=== PATIENT | male | born 1970 | race Caucasian/White ===

== ENCOUNTER 2017-12-01 08:54 | Outpatient (CLI) | payer OTHER, SELFPAY ==
[2017-12-01 11:03] LABS: Anion Gap 7.9 mmol/L (3-11); BUN 22 mg/dL (7-18); CO2 31.1 mmol/L (21.0-32.0); CREATININE 1.11 mg/dL (0.70-1.30); Calcium 8.9 mg/dL (8.5-10.1); Chloride 102 mmol/L (98-107); Cholesterol 134 mg/dL (50-200); Glucose 83 mg/dL (70-100); HDL Cholesterol 36 mg/dL (40-60); LDL CHOLESTEROL 77 mg/dL (<100); Potassium 3.9 mmol/L (3.5-5.1); Sodium 141 mmol/L (136-145); Triglyceride 152 mg/dL (30-150)
[2017-12-03 07:42] LABS: Hemoglobin A1C 8.3 % (4.5-6.2)
[2017-12-03 08:11] LABS: COMMENT (LAB VIEW ONLY) 124.14 mg/dL; Microalb ug/mg Crea 108.6 ug/mg Cr
== END 2017-12-01 09:14 ==
PROVIDERS: PCP Nurse Practitioner Family; Visit Provider Nurse Practitioner Family
DX: E11.9 Type 2 diabetes mellitus without complications (principal); E78.5 Hyperlipidemia, unspecified
CPT/HCPCS: 36415; 80048; 80061; 83721; 82043; 82570; 83036

== ENCOUNTER 2018-12-07 08:59 | Outpatient (CLI) | payer OTHER, SELFPAY ==
[2018-12-07 10:23] LABS: BUN 20 mg/dL (7-18); CREATININE 1.24 mg/dL (0.70-1.30); Calcium 9.5 mg/dL (8.5-10.1); Calculated LDL 73 mg/dL; Chloride 103 mmol/L (98-107); Cholesterol 139 mg/dL (50-200); Glucose 68 mg/dL (70-100); HDL Cholesterol 37 mg/dL (40-60); Potassium 4.3 mmol/L (3.5-5.1); Sodium 144 mmol/L (136-145); Triglyceride 146 mg/dL (30-150)
[2018-12-07 10:41] LABS: Hemoglobin A1C 7.4 % (4.5-6.2)
[2018-12-09 07:26] LABS: COMMENT (LAB VIEW ONLY) 124.63 mg/dL
== END 2018-12-07 09:19 ==
PROVIDERS: PCP Nurse Practitioner Family; Visit Provider Nurse Practitioner Family
DX: I10 Essential (primary) hypertension (principal); E78.5 Hyperlipidemia, unspecified; E11.9 Type 2 diabetes mellitus without complications; R73.01 Impaired fasting glucose
CPT/HCPCS: 36415; 80048; 80061; 82043; 82570; 83036

== ENCOUNTER 2019-03-10 13:03 | Outpatient (REF) | payer OTHER, SELFPAY ==
[2019-03-10 14:52] LABS: Abs Immature Grans 0.06 k/cumm (0.0-0.09); Absolute Basophil Count 0.05 k/cumm (0.0-0.2); Absolute Eosinophil Count 0.24 k/cumm (0.0-0.7); Absolute Lymphocyte Count 1.82 k/cumm (1.2-3.4); Absolute Monocyte Count 0.67 k/cumm (0.11-0.7); Absolute Neutrophil Count 5.55 k/cumm (1.2-6.7); Basophils % 0.6; Eosinophils % 2.9; HCT 42.3 % (40.0-50.0); HGB 13.7 g/dL (13.5-17.5); Immature Grans % 0.7 %; Lymphocytes % 21.7; Mean Corp. HGB Concentration 32.4 g/dL (32.0-36.0); Mean Corpuscular Hemoglobin 29.9 pg (27.0-33.0); Mean Corpuscular Volume 92.4 fL (80-95); Mean Platelet Volume 8.6 fL (8.0-11.0); Neutrophils % 66.1; Platelet Count 504 x1000/uL (130-400); RBC 4.58 m/cumm (4.50-6.00); RBC Distribution Width 13.9 % (11.8-14.1); White Blood Cell Count 8.39 k/cumm (4.4-10.8)
[2019-03-10 15:00] LABS: ALT 70 U/L (16-63); AST 28 U/L (15-37); Albumin 3.8 g/dL (3.4-5.0); Alkaline Phosphatase 82 U/L (46-116); Anion Gap 11.7 mmol/L (3-11); BUN 22 mg/dL (7-18); Bilirubin, Total 0.2 mg/dL (0.2-1.0); CO2 27.3 mmol/L (21.0-32.0); CREATININE 1.26 mg/dL (0.70-1.30); Calcium 9.7 mg/dL (8.5-10.1); Chloride 102 mmol/L (98-107); Glucose 123 mg/dL (74-106); Potassium 4.6 mmol/L (3.5-5.1); Sodium 141 mmol/L (136-145); Total Protein 7.4 g/dL (6.4-8.2)
== END 2019-03-10 13:23 ==
LOC: LBN 13:03
PROVIDERS: PCP Nurse Practitioner Family; Visit Provider Internal Medicine Infectious Disease
DX: T84.7XXD Infection and inflammatory reaction due to other internal orthopedic prosthetic devices, implants and grafts, subsequent encounter (principal); E11.9 Type 2 diabetes mellitus without complications
CPT/HCPCS: 80053; 85025; 86140

== ENCOUNTER 2019-03-17 12:49 | Outpatient (REF) | payer OTHER, SELFPAY ==
[2019-03-17 13:22] LABS: Abs Immature Grans 0.03 k/cumm (0.0-0.09); Absolute Basophil Count 0.04 k/cumm (0.0-0.2); Absolute Eosinophil Count 0.14 k/cumm (0.0-0.7); Absolute Monocyte Count 0.75 k/cumm (0.11-0.7); Absolute Neutrophil Count 7.07 k/cumm (1.2-6.7); Basophils % 0.4; Eosinophils % 1.4; HCT 41.8 % (40.0-50.0); HGB 13.6 g/dL (13.5-17.5); Immature Grans % 0.3 %; Lymphocytes % 17.5; Mean Corp. HGB Concentration 32.5 g/dL (32.0-36.0); Mean Corpuscular Hemoglobin 29.9 pg (27.0-33.0); Mean Corpuscular Volume 91.9 fL (80-95); Mean Platelet Volume 8.6 fL (8.0-11.0); Monocytes % 7.7; Neutrophils % 72.7; Platelet Count 474 x1000/uL (130-400); RBC 4.55 m/cumm (4.50-6.00); RBC Distribution Width 14.2 % (11.8-14.1); White Blood Cell Count 9.73 k/cumm (4.4-10.8)
[2019-03-17 13:59] LABS: ALT 38 U/L (16-63); AST 18 U/L (15-37); Alkaline Phosphatase 65 U/L (46-116); Anion Gap 11.6 mmol/L (3-11); BUN 28 mg/dL (7-18); Bilirubin, Total 0.2 mg/dL (0.2-1.0); C-Reactive Protein 0.39 mg/dL (0.0-0.3); CO2 28.4 mmol/L (21.0-32.0); CREATININE 1.15 mg/dL (0.70-1.30); Calcium 9.5 mg/dL (8.5-10.1); Chloride 102 mmol/L (98-107); Glucose 91 mg/dL (74-106); Potassium 4.5 mmol/L (3.5-5.1); Sodium 142 mmol/L (136-145); Total Protein 7.3 g/dL (6.4-8.2)
== END 2019-03-17 13:09 ==
LOC: LBN 12:49
PROVIDERS: PCP Nurse Practitioner Family; Visit Provider Internal Medicine Infectious Disease
DX: T84.7XXD Infection and inflammatory reaction due to other internal orthopedic prosthetic devices, implants and grafts, subsequent encounter (principal); I10 Essential (primary) hypertension; E11.9 Type 2 diabetes mellitus without complications
CPT/HCPCS: 80053; 85025; 86140

== ENCOUNTER 2019-03-31 12:00 | Outpatient (REF) | payer OTHER, SELFPAY ==
[2019-03-31 12:57] LABS: Abs Immature Grans 0.02 k/cumm (0.0-0.09); Absolute Basophil Count 0.04 k/cumm (0.0-0.2); Absolute Eosinophil Count 0.17 k/cumm (0.0-0.7); Absolute Lymphocyte Count 1.33 k/cumm (1.2-3.4); Absolute Monocyte Count 0.73 k/cumm (0.11-0.7); Absolute Neutrophil Count 4.77 k/cumm (1.2-6.7); Basophils % 0.6; Eosinophils % 2.4; HCT 41.8 % (40.0-50.0); HGB 13.6 g/dL (13.5-17.5); Immature Grans % 0.3 %; Lymphocytes % 18.8; Mean Corp. HGB Concentration 32.5 g/dL (32.0-36.0); Mean Corpuscular Volume 92.1 fL (80-95); Mean Platelet Volume 8.7 fL (8.0-11.0); Monocytes % 10.3; Neutrophils % 67.6; Platelet Count 338 x1000/uL (130-400); RBC 4.54 m/cumm (4.50-6.00); RBC Distribution Width 14.4 % (11.8-14.1); White Blood Cell Count 7.06 k/cumm (4.4-10.8)
[2019-03-31 13:08] LABS: ALT 25 U/L (16-63); AST 15 U/L (15-37); Alkaline Phosphatase 52 U/L (46-116); Anion Gap 12.3 mmol/L (3-11); BUN 24 mg/dL (7-18); Bilirubin, Total 0.3 mg/dL (0.2-1.0); C-Reactive Protein 0.31 mg/dL (0.0-0.3); CO2 26.7 mmol/L (21.0-32.0); CREATININE 1.29 mg/dL (0.70-1.30); Calcium 8.9 mg/dL (8.5-10.1); Chloride 103 mmol/L (98-107); Estimated GFR 58.72 (mL/min/1.73m2); Glucose 128 mg/dL (74-106); Potassium 4.1 mmol/L (3.5-5.1); Sodium 142 mmol/L (136-145); Total Protein 7.1 g/dL (6.4-8.2)
== END 2019-03-31 12:20 ==
LOC: LBN 12:00
PROVIDERS: PCP Nurse Practitioner Family; Visit Provider Internal Medicine Infectious Disease
DX: T84.7XXD Infection and inflammatory reaction due to other internal orthopedic prosthetic devices, implants and grafts, subsequent encounter (principal); I10 Essential (primary) hypertension
CPT/HCPCS: 80053; 85025; 86140

== ENCOUNTER 2019-06-17 18:06 | Outpatient (REF) | payer OTHER, SELFPAY ==
[2019-06-17 19:26] LABS: BUN 25 mg/dL (7-18); CREATININE 1.28 mg/dL (0.70-1.30); Estimated GFR 59.25 (mL/min/1.73m2)
== END 2019-06-17 18:26 ==
LOC: LBN 18:06
PROVIDERS: PCP Nurse Practitioner Family; Visit Provider Internal Medicine Infectious Disease
DX: T84.7XXD Infection and inflammatory reaction due to other internal orthopedic prosthetic devices, implants and grafts, subsequent encounter (principal); Z79.2 Long term (current) use of antibiotics; S82.871D Displaced pilon fracture of right tibia, subsequent encounter for closed fracture with routine healing
CPT/HCPCS: 84520; 80202; 82565

== ENCOUNTER 2019-06-23 09:19 | Outpatient (REF) | payer OTHER, SELFPAY ==
[2019-06-23 09:34] LABS: Abs Immature Grans 0.02 k/cumm (0.0-0.09); Absolute Basophil Count 0.06 k/cumm (0.0-0.2); Absolute Eosinophil Count 0.17 k/cumm (0.0-0.7); Absolute Lymphocyte Count 1.36 k/cumm (1.2-3.4); Absolute Monocyte Count 0.53 k/cumm (0.11-0.7); Absolute Neutrophil Count 4.91 k/cumm (1.2-6.7); Basophils % 0.9; Eosinophils % 2.4; HGB 13.9 g/dL (13.5-17.5); Immature Grans % 0.3 %; Lymphocytes % 19.3; Mean Corp. HGB Concentration 33.1 g/dL (32.0-36.0); Mean Corpuscular Hemoglobin 30.2 pg (27.0-33.0); Mean Corpuscular Volume 91.3 fL (80-95); Mean Platelet Volume 8.7 fL (8.0-11.0); Monocytes % 7.5; Neutrophils % 69.6; Platelet Count 411 x1000/uL (130-400); RBC Distribution Width 13.6 % (11.8-14.1); White Blood Cell Count 7.05 k/cumm (4.4-10.8)
[2019-06-23 09:45] LABS: ALT 47 U/L (16-63); AST 20 U/L (15-37); Albumin 4.3 g/dL (3.4-5.0); Alkaline Phosphatase 81 U/L (46-116); Anion Gap 9.3 mmol/L (3-11); BUN 23 mg/dL (7-18); Bilirubin, Total 0.4 mg/dL (0.2-1.0); C-Reactive Protein 0.36 mg/dL (0.0-0.3); CO2 28.7 mmol/L (21.0-32.0); CREATININE 1.26 mg/dL (0.70-1.30); Calcium 9.5 mg/dL (8.5-10.1); Chloride 102 mmol/L (98-107); Glucose 164 mg/dL (74-106); Sodium 140 mmol/L (136-145); Total Protein 7.5 g/dL (6.4-8.2)
[2019-06-23 09:56] LABS: Vancomycin, Trough 14.8 ug/mL (10.0-20.0)
== END 2019-06-23 09:39 ==
LOC: LBN 09:19
PROVIDERS: PCP Nurse Practitioner Family; Visit Provider Internal Medicine Infectious Disease
DX: L08.9 Local infection of the skin and subcutaneous tissue, unspecified (principal); Z79.2 Long term (current) use of antibiotics
CPT/HCPCS: 80053; 80202; 85025; 86140

== ENCOUNTER 2019-06-30 08:54 | Outpatient (REF) | payer OTHER, SELFPAY ==
[2019-06-30 09:33] LABS: Abs Immature Grans 0.01 k/cumm (0.0-0.09); Absolute Basophil Count 0.06 k/cumm (0.0-0.2); Absolute Eosinophil Count 0.21 k/cumm (0.0-0.7); Absolute Monocyte Count 0.53 k/cumm (0.11-0.7); Absolute Neutrophil Count 4.45 k/cumm (1.2-6.7); Basophils % 0.9; Eosinophils % 3.2; HCT 41.9 % (40.0-50.0); HGB 14.1 g/dL (13.5-17.5); Immature Grans % 0.2 %; Mean Corp. HGB Concentration 33.7 g/dL (32.0-36.0); Mean Corpuscular Hemoglobin 30.5 pg (27.0-33.0); Mean Corpuscular Volume 90.5 fL (80-95); Mean Platelet Volume 8.6 fL (8.0-11.0); Neutrophils % 66.7; Platelet Count 326 x1000/uL (130-400); RBC 4.63 m/cumm (4.50-6.00); RBC Distribution Width 13.5 % (11.8-14.1); White Blood Cell Count 6.66 k/cumm (4.4-10.8)
[2019-06-30 09:40] LABS: ALT 77 U/L (16-63); AST 28 U/L (15-37); Albumin 4.2 g/dL (3.4-5.0); Alkaline Phosphatase 77 U/L (46-116); Anion Gap 10.5 mmol/L (3-11); BUN 23 mg/dL (7-18); Bilirubin, Total 0.6 mg/dL (0.2-1.0); CO2 28.5 mmol/L (21.0-32.0); CREATININE 1.36 mg/dL (0.70-1.30); Calcium 9.1 mg/dL (8.5-10.1); Chloride 102 mmol/L (98-107); Estimated GFR 55.25 (mL/min/1.73m2); Glucose 138 mg/dL (74-106); Sodium 141 mmol/L (136-145); Total Protein 7.3 g/dL (6.4-8.2); Vancomycin, Trough 16.2 ug/mL (10.0-20.0)
[2019-06-30 09:48] LABS: C-Reactive Protein 0.17 mg/dL (0.0-0.3)
== END 2019-06-30 09:14 ==
LOC: LBN 08:54
PROVIDERS: PCP Nurse Practitioner Family; Visit Provider Internal Medicine Infectious Disease
DX: T84.7XXD Infection and inflammatory reaction due to other internal orthopedic prosthetic devices, implants and grafts, subsequent encounter (principal); Z51.81 Encounter for therapeutic drug level monitoring; Z79.2 Long term (current) use of antibiotics
CPT/HCPCS: 80053; 80202; 85025; 86140

== ENCOUNTER 2019-07-07 09:35 | Outpatient (REF) | payer OTHER, SELFPAY ==
[2019-07-07 10:00] LABS: Abs Immature Grans 0.01 k/cumm (0.0-0.09); Absolute Basophil Count 0.05 k/cumm (0.0-0.2); Absolute Eosinophil Count 0.16 k/cumm (0.0-0.7); Absolute Lymphocyte Count 0.96 k/cumm (1.2-3.4); Absolute Monocyte Count 0.53 k/cumm (0.11-0.7); Absolute Neutrophil Count 3.07 k/cumm (1.2-6.7); Eosinophils % 3.3; HCT 41.2 % (40.0-50.0); Immature Grans % 0.2 %; Lymphocytes % 20.1; Mean Corpuscular Hemoglobin 30.4 pg (27.0-33.0); Mean Corpuscular Volume 89.6 fL (80-95); Mean Platelet Volume 8.6 fL (8.0-11.0); Monocytes % 11.1; Neutrophils % 64.3; Platelet Count 306 x1000/uL (130-400); RBC Distribution Width 13.5 % (11.8-14.1); White Blood Cell Count 4.78 k/cumm (4.4-10.8)
[2019-07-07 10:10] LABS: ALT 71 U/L (16-63); AST 25 U/L (15-37); Albumin 4.2 g/dL (3.4-5.0); Alkaline Phosphatase 68 U/L (46-116); Anion Gap 10.1 mmol/L (3-11); BUN 22 mg/dL (7-18); Bilirubin, Total 0.6 mg/dL (0.2-1.0); CO2 27.9 mmol/L (21.0-32.0); CREATININE 1.31 mg/dL (0.70-1.30); Calcium 9.2 mg/dL (8.5-10.1); Chloride 102 mmol/L (98-107); Estimated GFR 57.69 (mL/min/1.73m2); Glucose 194 mg/dL (74-106); Sodium 140 mmol/L (136-145); Total Protein 7.3 g/dL (6.4-8.2)
[2019-07-07 16:03] LABS: Vancomycin, Trough 15.7 ug/mL (10.0-20.0)
[2019-07-07 16:11] LABS: C-Reactive Protein 0.18 mg/dL (0.0-0.3)
== END 2019-07-07 09:55 ==
LOC: LBN 09:35
PROVIDERS: PCP Nurse Practitioner Family; Visit Provider Internal Medicine Infectious Disease
DX: T84.7XXD Infection and inflammatory reaction due to other internal orthopedic prosthetic devices, implants and grafts, subsequent encounter (principal); Z79.2 Long term (current) use of antibiotics; Z51.81 Encounter for therapeutic drug level monitoring
CPT/HCPCS: 80053; 80202; 85025; 86140

== ENCOUNTER 2019-07-14 10:14 | Outpatient (RCR) | payer OTHER, SELFPAY ==
--- NOTE | 2019-07-14 11:45 | DI.RAD_ITS ---
EXAM: XR PORTABLE CHEST AP CLINICAL HISTORY: Picc line placement TECHNIQUE: 2D digital imaging was performed. COMPARISON: No exams were available for comparison FINDINGS: MEDIASTINUM: Normal. HEART: Normal. PULMONARY VASCULATURE: Normal. LUNGS: Clear. PLEURAL SPACE: No pleural effusion or pneumothorax. BONE:Normal. OTHER FINDINGS:There is a right PICC line in place. The tip is in good position at the junction of t he superior vena cava and right atrium. IMPRESSION: The tip of the right PICC line is in good position at the junction of the superior vena cava and righ t atrium. No acute pulmonary process. DATA REPOSITORY: RADIATION DOSE DELIVERED:
[2019-07-14] MEDS: Water,Injection,Sterile 10 ML VIAL IV (12:31)
[2019-07-14] MEDS: Alteplase 2 MG VIAL IJ (12:31)
[2019-07-14] MEDS: Normal Saline Flush 10 ML SYR IVP (12:31)
== END 2019-07-27 23:59 | disposition home or self-care (01) ==
LOC: INF 10:14
PROVIDERS: PCP Nurse Practitioner Family; Visit Provider Nurse Practitioner Family
DX: M86.9 Osteomyelitis, unspecified (principal); Z79.2 Long term (current) use of antibiotics; Z45.2 Encounter for adjustment and management of vascular access device
CPT/HCPCS: 71045; J2997

== ENCOUNTER 2019-07-14 10:18 | Outpatient (REF) | payer OTHER, SELFPAY ==
[2019-07-14 10:43] LABS: ALT 82 U/L (16-63); AST 27 U/L (15-37); Albumin 4.5 g/dL (3.4-5.0); Alkaline Phosphatase 76 U/L (46-116); Anion Gap 8.7 mmol/L (3-11); BUN 24 mg/dL (7-18); Bilirubin, Total 0.6 mg/dL (0.2-1.0); CO2 31.3 mmol/L (21.0-32.0); CREATININE 1.39 mg/dL (0.70-1.30); Calcium 9.4 mg/dL (8.5-10.1); Chloride 100 mmol/L (98-107); Estimated GFR 53.87 (mL/min/1.73m2); Glucose 237 mg/dL (74-106); Sodium 140 mmol/L (136-145); Total Protein 7.5 g/dL (6.4-8.2); Vancomycin, Trough 15.2 ug/mL (10.0-20.0)
[2019-07-14 10:48] LABS: Absolute Basophil Count 0.04 k/cumm (0.0-0.2); Absolute Eosinophil Count 0.19 k/cumm (0.0-0.7); Absolute Lymphocyte Count 1.14 k/cumm (1.2-3.4); Absolute Monocyte Count 0.73 k/cumm (0.11-0.7); Absolute Neutrophil Count 3.02 k/cumm (1.2-6.7); Basophils % 0.8; Eosinophils % 3.7; HCT 42.7 % (40.0-50.0); HGB 14.3 g/dL (13.5-17.5); Lymphocytes % 22.3; Mean Corp. HGB Concentration 33.5 g/dL (32.0-36.0); Mean Corpuscular Hemoglobin 30.3 pg (27.0-33.0); Mean Corpuscular Volume 90.5 fL (80-95); Mean Platelet Volume 8.6 fL (8.0-11.0); Monocytes % 14.3; Neutrophils % 58.9; Platelet Count 320 x1000/uL (130-400); RBC 4.72 m/cumm (4.50-6.00); RBC Distribution Width 13.6 % (11.8-14.1); White Blood Cell Count 5.12 k/cumm (4.4-10.8)
[2019-07-14 10:52] LABS: C-Reactive Protein 0.37 mg/dL (0.0-0.3)
== END 2019-07-14 10:38 ==
LOC: LBN 10:18
PROVIDERS: PCP Nurse Practitioner Family; Visit Provider Internal Medicine Infectious Disease
DX: T84.7XXD Infection and inflammatory reaction due to other internal orthopedic prosthetic devices, implants and grafts, subsequent encounter (principal); Z51.81 Encounter for therapeutic drug level monitoring; Z79.2 Long term (current) use of antibiotics; L08.9 Local infection of the skin and subcutaneous tissue, unspecified
CPT/HCPCS: 80053; 80202; 85025; 86140

== ENCOUNTER 2019-07-21 09:32 | Outpatient (CLI) | payer OTHER, SELFPAY ==
[2019-07-21 09:48] LABS: Abs Immature Grans 0.01 k/cumm (0.0-0.09); Absolute Basophil Count 0.04 k/cumm (0.0-0.2); Absolute Eosinophil Count 0.18 k/cumm (0.0-0.7); Absolute Lymphocyte Count 1.19 k/cumm (1.2-3.4); Absolute Monocyte Count 0.76 k/cumm (0.11-0.7); Absolute Neutrophil Count 3.95 k/cumm (1.2-6.7); Basophils % 0.7; Eosinophils % 2.9; HCT 40.1 % (40.0-50.0); HGB 13.8 g/dL (13.5-17.5); Immature Grans % 0.2 %; Lymphocytes % 19.4; Mean Corp. HGB Concentration 34.4 g/dL (32.0-36.0); Mean Corpuscular Hemoglobin 30.8 pg (27.0-33.0); Mean Corpuscular Volume 89.5 fL (80-95); Mean Platelet Volume 8.5 fL (8.0-11.0); Monocytes % 12.4; Neutrophils % 64.4; Platelet Count 320 x1000/uL (130-400); RBC 4.48 m/cumm (4.50-6.00); RBC Distribution Width 13.5 % (11.8-14.1); White Blood Cell Count 6.13 k/cumm (4.4-10.8)
[2019-07-21 10:02] LABS: ALT 71 U/L (16-63); AST 25 U/L (15-37); Albumin 4.3 g/dL (3.4-5.0); Alkaline Phosphatase 72 U/L (46-116); Anion Gap 8.7 mmol/L (3-11); BUN 31 mg/dL (7-18); Bilirubin, Total 0.7 mg/dL (0.2-1.0); CO2 28.3 mmol/L (21.0-32.0); CREATININE 1.44 mg/dL (0.70-1.30); Calcium 9.3 mg/dL (8.5-10.1); Chloride 102 mmol/L (98-107); Estimated GFR 51.72 (mL/min/1.73m2); Glucose 126 mg/dL (74-106); Sodium 139 mmol/L (136-145); Total Protein 7.2 g/dL (6.4-8.2)
[2019-07-21 10:14] LABS: Vancomycin, Trough 17.5 ug/mL (10.0-20.0)
[2019-07-21 10:24] LABS: C-Reactive Protein 0.69 mg/dL (0.0-0.3)
== END 2019-07-21 09:52 ==
PROVIDERS: PCP Nurse Practitioner Family; Visit Provider Internal Medicine Infectious Disease
DX: T84.7XXD Infection and inflammatory reaction due to other internal orthopedic prosthetic devices, implants and grafts, subsequent encounter (principal); S82.871D Displaced pilon fracture of right tibia, subsequent encounter for closed fracture with routine healing; Z79.2 Long term (current) use of antibiotics
CPT/HCPCS: 80053; 80202; 85025; 86140

== ENCOUNTER 2020-08-16 14:49 | Outpatient (REF) | payer BC, SELFPAY ==
[2020-08-16 14:10] LABS: Abs Immature Grans 0.06 10^3/uL (0.0-0.06); Absolute Basophil Count 0.06 10^3/uL (0.0-0.2); Absolute Eosinophil Count 0.25 10^3/uL (0.0-0.7); Absolute Lymphocyte Count 1.55 10^3/uL (1.2-3.4); Absolute Monocyte Count 0.79 10^3/uL (0.1-0.8); Absolute Neutrophil Count 6.22 10^3/uL (1.2-6.7); Basophils % 0.7; Eosinophils % 2.8; HCT 38.2 % (40.0-50.0); HGB 12.4 g/dL (13.5-17.5); Immature Grans % 0.7; Lymphocytes % 17.4; MCH 29.5 pg (27.0-33.0); MCHC 32.5 % (32.0-36.0); MCV 90.7 fL (80-95); MPV 8.2 fL (8.0-11.0); Monocytes % 8.8; Neutrophils % 69.6; Nucleated RBC 0 %; Platelet Count 454 10^3/uL (130-400); RBC 4.21 10^6/uL (4.36-5.78); RDW 13.1 % (11.8-14.1); RDW-SD 43.8 fL; WBC 8.93 10^3/uL (4.4-10.8)
[2020-08-16 14:23] LABS: ALT 104 U/L (16-63); AST 34 U/L (15-37); Albumin 3.4 g/dL (3.4-5.0); Alkaline Phosphatase 101 U/L (46-116); Anion Gap 8.7 mmol/L (3-11); BUN 25 mg/dL (7-18); Bilirubin, Total 0.3 mg/dL (0.2-1.0); C-Reactive Protein 1.39 mg/dL (0.0-0.3); CO2 27.3 mmol/L (21.0-32.0); CREATININE 1.3 mg/dL (0.70-1.30); Calcium 9.9 mg/dL (8.5-10.1); Chloride 104 mmol/L (98-107); Estimated GFR 57.97 (mL/min/1.73m2); Glucose 189 mg/dL (74-106); Potassium 4.4 mmol/L (3.5-5.1); Sodium 140 mmol/L (136-145); Total Protein 7.5 g/dL (6.4-8.2)
[2020-08-16 14:40] LABS: Vancomycin, Trough 7.3 ug/mL (10.0-20.0)
== END 2020-08-16 14:50 | disposition home or self-care (01) ==
LOC: NCHCN 14:49
PROVIDERS: PCP Nurse Practitioner Family; Visit Provider Nurse Practitioner
DX: T84.7XXD Infection and inflammatory reaction due to other internal orthopedic prosthetic devices, implants and grafts, subsequent encounter (principal); Z79.2 Long term (current) use of antibiotics
CPT/HCPCS: 80053; 80202; 85025; 86140

== ENCOUNTER 2020-08-19 18:24 | Outpatient (REF) | payer BC, SELFPAY ==
[2020-08-19 10:58] LABS: BUN 25 mg/dL (7-18); CREATININE 1.4 mg/dL (0.70-1.30); Estimated GFR 53.22 (mL/min/1.73m2)
[2020-08-19 11:12] LABS: Vancomycin, Trough 14.1 ug/mL (10.0-20.0)
== END 2020-08-19 18:25 | disposition home or self-care (01) ==
LOC: LBN 18:24
PROVIDERS: PCP Nurse Practitioner Family; Visit Provider Internal Medicine Infectious Disease
DX: T84.7XXD Infection and inflammatory reaction due to other internal orthopedic prosthetic devices, implants and grafts, subsequent encounter (principal); Z79.2 Long term (current) use of antibiotics
CPT/HCPCS: 84520; 80202; 82565

== ENCOUNTER 2020-08-23 09:37 | Outpatient (REF) | payer BC, SELFPAY ==
[2020-08-23 10:46] LABS: ALT 59 U/L (16-63); AST 22 U/L (15-37); Albumin 3.5 g/dL (3.4-5.0); Alkaline Phosphatase 87 U/L (46-116); Anion Gap 10.4 mmol/L (3-11); BUN 25 mg/dL (7-18); Bilirubin, Total 0.4 mg/dL (0.2-1.0); CO2 27.6 mmol/L (21.0-32.0); CREATININE 1.3 mg/dL (0.70-1.30); Calcium 9.4 mg/dL (8.5-10.1); Chloride 104 mmol/L (98-107); Estimated GFR 57.97 (mL/min/1.73m2); Glucose 193 mg/dL (74-106); Potassium 4.4 mmol/L (3.5-5.1); Sodium 142 mmol/L (136-145); Total Protein 7.3 g/dL (6.4-8.2); Vancomycin, Trough 16.1 ug/mL (10.0-20.0)
[2020-08-23 13:59] LABS: C-Reactive Protein 0.56 mg/dL (0.0-0.3)
== END 2020-08-23 09:38 | disposition home or self-care (01) ==
LOC: LBN 09:37
PROVIDERS: PCP Nurse Practitioner Family; Visit Provider Internal Medicine Infectious Disease
DX: T84.7XXD Infection and inflammatory reaction due to other internal orthopedic prosthetic devices, implants and grafts, subsequent encounter (principal); Z79.2 Long term (current) use of antibiotics
CPT/HCPCS: 80053; 80202; 85025; 86140

== ENCOUNTER 2020-08-30 11:47 | Outpatient (REF) | payer BC, SELFPAY ==
[2020-08-30 12:08] LABS: Abs Immature Grans 0.03 10^3/uL (0.0-0.06); Absolute Basophil Count 0.05 10^3/uL (0.0-0.2); Absolute Eosinophil Count 0.24 10^3/uL (0.0-0.7); Absolute Lymphocyte Count 1.13 10^3/uL (1.2-3.4); Absolute Monocyte Count 0.63 10^3/uL (0.1-0.8); Absolute Neutrophil Count 4.97 10^3/uL (1.2-6.7); Basophils % 0.7; Eosinophils % 3.4; HCT 33.8 % (40.0-50.0); HGB 10.8 g/dL (13.5-17.5); Immature Grans % 0.4; MCV 90.6 fL (80-95); MPV 8.5 fL (8.0-11.0); Monocytes % 8.9; Neutrophils % 70.6; Nucleated RBC 0 %; Platelet Count 408 10^3/uL (130-400); RBC 3.73 10^6/uL (4.36-5.78); RDW 13.2 % (11.8-14.1); RDW-SD 43.5 fL; WBC 7.05 10^3/uL (4.4-10.8)
[2020-08-30 12:18] LABS: Albumin 3.3 g/dL (3.4-5.0); Alkaline Phosphatase 86 U/L (46-116); BUN 19 mg/dL (7-18); Bilirubin, Total 0.3 mg/dL (0.2-1.0); CO2 27.1 mmol/L (21.0-32.0); CREATININE 1.4 mg/dL (0.70-1.30); Calcium 9.1 mg/dL (8.5-10.1); Chloride 103 mmol/L (98-107); Estimated GFR 53.22 (mL/min/1.73m2); Glucose 259 mg/dL (74-106); Potassium 4.5 mmol/L (3.5-5.1); Sodium 140 mmol/L (136-145)
[2020-08-30 12:19] LABS: ALT 39 U/L (16-63); AST 18 U/L (15-37); Anion Gap 9.9 mmol/L (3-11); Vancomycin, Trough 14.1 ug/mL (10.0-20.0)
[2020-08-30 12:45] LABS: C-Reactive Protein 0.72 mg/dL (0.0-0.3)
== END 2020-08-30 11:48 | disposition home or self-care (01) ==
LOC: LBN 11:47
PROVIDERS: PCP Nurse Practitioner Family; Visit Provider Internal Medicine Infectious Disease
DX: T84.7XXD Infection and inflammatory reaction due to other internal orthopedic prosthetic devices, implants and grafts, subsequent encounter (principal); B95.7 Other staphylococcus as the cause of diseases classified elsewhere; M86.161 Other acute osteomyelitis, right tibia and fibula; Z79.2 Long term (current) use of antibiotics
CPT/HCPCS: 80053; 80202; 85025; 86140

== ENCOUNTER 2020-09-06 21:05 | Outpatient (REF) | payer BC, SELFPAY ==
[2020-09-06 13:20] LABS: Abs Immature Grans 0.04 10^3/uL (0.0-0.06); Absolute Basophil Count 0.06 10^3/uL (0.0-0.2); Absolute Eosinophil Count 0.16 10^3/uL (0.0-0.7); Absolute Lymphocyte Count 1.15 10^3/uL (1.2-3.4); Absolute Monocyte Count 0.58 10^3/uL (0.1-0.8); Absolute Neutrophil Count 4.61 10^3/uL (1.2-6.7); Basophils % 0.9; Eosinophils % 2.4; HCT 34.9 % (40.0-50.0); HGB 11.2 g/dL (13.5-17.5); Immature Grans % 0.6; Lymphocytes % 17.4; MCH 29.8 pg (27.0-33.0); MCHC 32.1 % (32.0-36.0); MCV 92.8 fL (80-95); MPV 8.6 fL (8.0-11.0); Monocytes % 8.8; Neutrophils % 69.9; Nucleated RBC 0 %; Platelet Count 336 10^3/uL (130-400); RBC 3.76 10^6/uL (4.36-5.78); RDW 13.2 % (11.8-14.1); RDW-SD 44.9 fL
[2020-09-06 13:38] LABS: ALT 39 U/L (16-63); AST 12 U/L (15-37); Albumin 3.7 g/dL (3.4-5.0); Alkaline Phosphatase 85 U/L (46-116); Anion Gap 13.9 mmol/L (3-11); BUN 23 mg/dL (7-18); Bilirubin, Total 0.5 mg/dL (0.2-1.0); CO2 25.1 mmol/L (21.0-32.0); CREATININE 1.3 mg/dL (0.70-1.30); Calcium 9.1 mg/dL (8.5-10.1); Chloride 101 mmol/L (98-107); Estimated GFR 57.97 (mL/min/1.73m2); Glucose 278 mg/dL (74-106); Potassium 4.9 mmol/L (3.5-5.1); Sodium 140 mmol/L (136-145)
[2020-09-06 13:52] LABS: C-Reactive Protein 0.35 mg/dL (0.0-0.3)
== END 2020-09-06 21:06 | disposition home or self-care (01) ==
LOC: LBN 21:05
PROVIDERS: PCP Nurse Practitioner Family; Visit Provider Internal Medicine Infectious Disease
DX: T84.7XXD Infection and inflammatory reaction due to other internal orthopedic prosthetic devices, implants and grafts, subsequent encounter (principal); B95.7 Other staphylococcus as the cause of diseases classified elsewhere; Z79.2 Long term (current) use of antibiotics
CPT/HCPCS: 80053; 80202; 85025; 86140

== ENCOUNTER 2020-09-09 13:31 | Outpatient (REF) | payer BC, SELFPAY ==
[2020-09-09 14:53] LABS: BUN 23 mg/dL (7-18); CREATININE 1.7 mg/dL (0.70-1.30); Estimated GFR 42.54 (mL/min/1.73m2); Vancomycin, Trough 13.6 ug/mL (10.0-20.0)
== END 2020-09-09 13:32 | disposition home or self-care (01) ==
LOC: LBN 13:31
PROVIDERS: PCP Nurse Practitioner Family; Visit Provider Internal Medicine Infectious Disease
DX: Z79.2 Long term (current) use of antibiotics (principal); T84.7XXD Infection and inflammatory reaction due to other internal orthopedic prosthetic devices, implants and grafts, subsequent encounter; B95.7 Other staphylococcus as the cause of diseases classified elsewhere
CPT/HCPCS: 84520; 80202; 82565

== ENCOUNTER 2020-09-13 10:06 | Outpatient (REF) | payer BC, SELFPAY ==
[2020-09-13 12:46] LABS: Abs Immature Grans 0.02 10^3/uL (0.0-0.06); Absolute Basophil Count 0.07 10^3/uL (0.0-0.2); Absolute Lymphocyte Count 1.25 10^3/uL (1.2-3.4); Absolute Monocyte Count 0.71 10^3/uL (0.1-0.8); Absolute Neutrophil Count 5.25 10^3/uL (1.2-6.7); Basophils % 0.9; Eosinophils % 2.7; HCT 38.1 % (40.0-50.0); HGB 12.4 g/dL (13.5-17.5); Immature Grans % 0.3; Lymphocytes % 16.7; MCH 29.9 pg (27.0-33.0); MCHC 32.5 % (32.0-36.0); MCV 91.8 fL (80-95); Monocytes % 9.5; Neutrophils % 69.9; Nucleated RBC 0 %; RBC 4.15 10^6/uL (4.36-5.78); RDW 13.2 % (11.8-14.1); RDW-SD 44.7 fL
[2020-09-13 12:55] LABS: ALT 56 U/L (16-63); AST 22 U/L (15-37); Albumin 4.1 g/dL (3.4-5.0); Alkaline Phosphatase 86 U/L (46-116); Anion Gap 9.4 mmol/L (3-11); BUN 20 mg/dL (7-18); Bilirubin, Total 0.5 mg/dL (0.2-1.0); C-Reactive Protein 0.17 mg/dL (0.0-0.3); CO2 25.6 mmol/L (21.0-32.0); CREATININE 1.3 mg/dL (0.70-1.30); Calcium 9.2 mg/dL (8.5-10.1); Chloride 106 mmol/L (98-107); Estimated GFR 57.97 (mL/min/1.73m2); Glucose 175 mg/dL (74-106); Potassium 4.6 mmol/L (3.5-5.1); Sodium 141 mmol/L (136-145); Total Protein 7.2 g/dL (6.4-8.2)
[2020-09-13 13:13] LABS: Vancomycin, Trough 19.4 ug/mL (10.0-20.0)
== END 2020-09-13 10:07 | disposition home or self-care (01) ==
LOC: LBN 10:06
PROVIDERS: PCP Internal Medicine Infectious Disease; Visit Provider Internal Medicine Infectious Disease
DX: Z79.2 Long term (current) use of antibiotics (principal); M86.161 Other acute osteomyelitis, right tibia and fibula; T84.7XXD Infection and inflammatory reaction due to other internal orthopedic prosthetic devices, implants and grafts, subsequent encounter; B95.7 Other staphylococcus as the cause of diseases classified elsewhere
CPT/HCPCS: 80053; 80202; 85025; 86140

== ENCOUNTER 2020-09-15 11:23 | Outpatient (REF) | payer BC, SELFPAY ==
[2020-09-15 16:08] LABS: BUN 20 mg/dL (7-18); CREATININE 1.3 mg/dL (0.70-1.30); Estimated GFR 57.97 (mL/min/1.73m2)
== END 2020-09-15 11:24 | disposition home or self-care (01) ==
LOC: LBN 11:23
PROVIDERS: PCP Nurse Practitioner Family; Visit Provider Nurse Practitioner Family
DX: B95.7 Other staphylococcus as the cause of diseases classified elsewhere (principal); M86.161 Other acute osteomyelitis, right tibia and fibula
CPT/HCPCS: 84520; 82565

== ENCOUNTER 2020-09-16 10:19 | Outpatient (REF) | payer BC, SELFPAY ==
[2020-09-16 14:08] LABS: Vancomycin, Trough 11.4 ug/mL (10.0-20.0)
== END 2020-09-16 10:20 | disposition home or self-care (01) ==
LOC: LBN 10:19
PROVIDERS: PCP Nurse Practitioner Family; Visit Provider Internal Medicine Infectious Disease
DX: M86.161 Other acute osteomyelitis, right tibia and fibula (principal); T84.7XXD Infection and inflammatory reaction due to other internal orthopedic prosthetic devices, implants and grafts, subsequent encounter; B95.7 Other staphylococcus as the cause of diseases classified elsewhere; Z79.2 Long term (current) use of antibiotics
CPT/HCPCS: 80202

== ENCOUNTER 2020-09-30 15:44 | Outpatient (REF) | payer BC, SELFPAY ==
[2020-09-30 20:08] LABS: COMMENT (LAB VIEW ONLY) 110.28 mg/dL; Microalb ug/mg Crea 270.2 ug/mg Cr
== END 2020-09-30 15:45 | disposition home or self-care (01) ==
LOC: LBN 15:44
PROVIDERS: PCP Nurse Practitioner Family; Visit Provider Nurse Practitioner Family
DX: E11.29 Type 2 diabetes mellitus with other diabetic kidney complication (principal); Z79.4 Long term (current) use of insulin
CPT/HCPCS: 82043; 82570

== ENCOUNTER 2020-12-09 11:06 | Outpatient (CLI) | payer BC, SELFPAY ==
--- NOTE | 2020-12-09 11:00 | RT.EKG_ITS ---
APPROVED REPORT Exam: Resting ECG Reason for Exam: assess QT interval Patient Location: O HR:105 bpm ECG Measurements Heart Rate 105 AXIS DE 149 P 52 QRSd 81 QRS 33 QT 326 T 30 QTc 433 Conclusion Sinus tachycardia...rate> 99
== END 2020-12-09 11:07 | disposition home or self-care (01) ==
LOC: DI.KIM 11:07
PROVIDERS: PCP Nurse Practitioner Family; Visit Provider Nurse Practitioner Family
DX: Z51.81 Encounter for therapeutic drug level monitoring (principal)
CPT/HCPCS: 93010

== ENCOUNTER 2020-12-20 00:42 | Outpatient (CLI) | payer BC, SELFPAY ==
--- NOTE | 2020-12-20 13:00 | NS.NUTBLAN_ITS ---
Cm was referred to [facility] for diabetes self management education and weight management. 5'10 266 lbs, BMI 38. DM meds: 25 units novolog at meals, 50 units tresiba BID, 1.5 mg trulicity q week, 1000 mg metformin BID. Taken off Jardiance 2-3 months ago. Blood sugars running in 200s most of time. Check BS twice daily. Reports when on Jardiance, blood sugars in good control. Diet recall indicates reliance on convenience meals and often skips meals. Does not drink sweetened beverages or eat desserts. 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 Has been on disabilty for last 2 years, wants to return to work in February 2021. [place] today focused on how to alter meal plan for better glycemic control. Offered Dexcom 6 continuous glucose monitor with remote monitoring, however, he declined. Encouraged Cm to use carb counting phone latonya to limit carb intake below 100 grams. Doubtful that he will use latonya. Cm verbalized that he just wants to get back on jardiance and not interested in changing how he eats. In view of high use of insulin (175 units qd), Cm has insulin resistance and would benefit from exercise and carb reduction. Encouraged Cm to exercise, lift weights with upper body, be as active as possible. He seemed doubtful that he would do this. At this time, Cm is not ready to make significant changes to his diet/lifestyle to improve glycemic control and reduce risk for further complications related to foot surgeries in last 2 years. Cm is interested, however, to a referral to Massimo Lopes, ambulatory pharmacist for medication management. No follow up planned at this time.
== END 2020-12-20 00:43 | disposition home or self-care (01) ==
LOC: DS 00:44
PROVIDERS: PCP Nurse Practitioner Family; Visit Provider Dietitian, Registered
DX: E11.9 Type 2 diabetes mellitus without complications (principal); Z79.4 Long term (current) use of insulin; Z79.84 Long term (current) use of oral hypoglycemic drugs; E66.8 Other obesity; Z68.38 Body mass index [BMI] 38.0-38.9, adult; Z71.3 Dietary counseling and surveillance
CPT/HCPCS: 97802

== ENCOUNTER 2020-12-24 02:30 | Emergency (ER) | payer BC, SELFPAY ==
[2020-12-24 02:35] VITALS: BP 182/95; PULSE 96; RESP 18; TEMP 36.2; O2SAT 100
--- NOTE | 2020-12-24 02:43 | ED.GENADUL_ITS ---
Discharge Plan Disposition Patient Disposition: HOME Condition: Good Discharge Details Clinical Impression: Allergic drug reaction Primary Care Provider: Rebekah Leavitt ED Provider: Milton Sinclair [place] Meds and New Rx's Prescriptions: New prednisone 20 mg tablet 40 mg PO DAILY Qty: 6 RF: 0 Continued Trulicity 1.5 mg/0.5 mL pen injector 1.5 mg subcut QWEEK Qty: 6 RF: 3 sildenafil [Viagra] 100 mg tablet 50 mg PO ONCE PRN (Reason: sexual activity) Qty: 15 RF: 0 atorvastatin [Lipitor] 40 mg tablet 40 mg PO DAILY Qty: 90 RF: 3 Tresiba FlexTouch U-200 200 unit/mL (3 mL) insulin pen 50 unit subcut BID Qty: 45 RF: 3 metformin 1,000 mg tablet 1,000 mg PO BID Qty: 180 RF: 3 acetaminophen 500 mg capsule 1,000 mg PO Q8H PRNRF: 0 aspirin [Aspir-81] 81 mg tablet,delayed release (DR/EC) 81 mg PO BID RF: 0 (DME) pen needle, diabetic 31 gauge x 1/3 needle 1 ea Miscellaneous HS Qty: 500 RF: 3 omeprazole 20 mg capsule,delayed release(DR/EC) 20 mg PO DAILY Qty: 90 RF: 3 insulin lispro [Humalog KwikPen Insulin] 100 unit/mL insulin pen 25 unit SC QAC Qty: 12 RF: 3 Lactobacillus acidoph-pectin 75 million cell -100 mg capsule 1 cap PO DAILY RF: 0 losartan 100 mg tablet 100 mg PO DAILY Qty: 90 RF: 3 Discharge Instructions Instructions: General Allergic Reaction (ED) Additional Instructions: Continue taking diphenhydramine 50 mg every 6 hours for itching. Prednisone burst over the weekend to help alleviate the reaction. Be sure to keep an eye on your blood sugar as prednisone will likely increase it. Return to the ED for difficulty breathing, tongue or throat swelling, fainting, chest pain, other concerns. Medical Decision Making Patient presenting with pruritic whole body rash consistent with drug reaction, presumably to itraconazole. This has been discontinued. Patient is taking diphenhydramine. His previous infection has been deemed clear per the patient. As such we will burst with prednisone due to the progressive nature of his reaction. Patient warned to watch sugars and to expect an elevation while on prednisone. Due to follow-up at [facility] next week for final surgery. Return to the ED if any worsening symptoms especially lip or tongue swelling, difficulty breathing, vomiting, diarrhea. HPI General Mode of arrival: ambulatory . Date/Time Provider Initiated Documentation: 12/24/20 02:41 . Limitations to Documentation: no limitations . Information obtained by: patient, family and RN notes reviewed . HPI Narrative: Patient presents to ED with pruritis and rash for last 24 hours. Was started on itraconazole last week for possible fungal infection. Subsequently developed rash after about a week. No other new medications or potential allergens. ID discontinued med but rash has intensified. Diphenhydramine not really helping. No oral symptoms, no SOB/wheeze, no GI symptoms. Is due to have final surgery on ankle next week as infection is deemed cleared. Related Data Home Medications Medication Instructions Recorded Confirmed acetaminophen 500 mg capsule 1,000 mg PO Q8H PRN cap 06/18/19 12/09/20 aspirin 81 mg tablet,delayed 81 mg PO BID tab 06/18/19 12/09/20 release pen needle, diabetic 31 gauge x #500 ea 01/29/20 12/09/20 1/3 omeprazole 20 mg capsule,delayed 20 mg PO DAILY #90 tab-cap 03/29/20 12/09/20 release insulin lispro 100 unit/mL 25 unit SC QAC #12 syringe 06/10/20 12/09/20 subcutaneous pen dulaglutide 1.5 mg/0.5 mL 1.5 mg SUBCUT QWEEK #6 ml 07/01/20 12/09/20 subcutaneous pen injector sildenafil 100 mg tablet 50 mg PO ONCE PRN #15 tab-cap 07/01/20 12/09/20 Lactobacillus acidophilus 75 1 cap PO DAILY cap 09/21/20 12/09/20 million cell-pectin 100 mg capsule losartan 100 mg tablet 100 mg PO DAILY #90 tab-cap 09/27/20 12/09/20 atorvastatin 40 mg tablet 40 mg PO DAILY #90 tab-cap 12/09/20 12/09/20 insulin degludec 200 unit/mL (3 50 unit SUBCUT BID #45 syrg 12/09/20 12/09/20 mL) subcutaneous pen metformin 1,000 mg tablet 1,000 mg PO BID #180 tab-cap 12/09/20 12/09/20 prednisone 40 mg PO DAILY #6 tab 12/24/20 Previous Rx's Medication Instructions Recorded pen needle, diabetic 31 gauge x #500 ea 01/29/20 1 omeprazole 20 mg capsule,delayed 20 mg PO DAILY #90 tab-cap 03/29/20 release insulin lispro 100 unit/mL 25 unit SC QAC #12 syringe 06/10/20 subcutaneous pen dulaglutide 1.5 mg/0.5 mL 1.5 mg SUBCUT QWEEK #6 ml 07/01/20 subcutaneous pen injector sildenafil 100 mg tablet 50 mg PO ONCE PRN #15 tab-cap 07/01/20 losartan 100 mg tablet 100 mg PO DAILY #90 tab-cap 09/27/20 atorvastatin 40 mg tablet 40 mg PO DAILY #90 tab-cap 12/09/20 insulin degludec 200 unit/mL (3 50 unit SUBCUT BID #45 syrg 12/09/20 mL) subcutaneous pen metformin 1,000 mg tablet 1,000 mg PO BID #180 tab-cap 12/09/20 prednisone 40 mg PO DAILY #6 tab 12/24/20 Allergies Allergy/AdvReac Type Severity Reaction Status Date / Time itraconazole Allergy Intermediate rash Verified 12/24/20 02:59 General Stated Complaint: RashLesion AMANDA: 4 Review of Systems Narrative: As documented in HPI otherwise negative as below. Const: no fever, chills, weakness Resp: no cough, SOB, pleuritic pain CV: no CP, diaphoresis, edema, syncope GI: no abdominal pain, nausea, vomiting, diarrhea Neuro: no headache, numbness, focal weakness, confusion [facility] [place] Medical History Arthritis of ankle, right Closed displaced pilon fracture of right tibia (~12/31/18) 03/12/20 Hardware removal. Erectile dysfunction Essential hypertension HLD (hyperlipidemia) HTN (hypertension) Hyperlipidemia, unspecified 11/2016 labwork: 10-year ASCVD risk = ~5.3% --> continue current high intensity statin therapy In[place]opedic [place] 03/03[place]19 [place] [facility] [place] PICC line, lovenox daily 03/04/19-I&D R tibia 05/05/19-hardware removed 06/13/19-I&D abscess RLE [facility]albuminuria (12/11/16) T2DM (type 2 diabetes mellitus) Surgical History Carpal tunnel release, right Elbow surgery, left H/O ankle fusion 08/06/20 [facility] [place] 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 Scheduled for removal 03/26/20 2 w post op R ankle- removal of hardware. S/P ankle fusion (09/23/20) (Gitajn) right AXB TTC fusion nail removal, bone biopsy new AXB nail placed 11/11/20 exchange of antibiotic nail Family History Mother , Cancer at age 68. Neoplasm Recurrent breast CA? Father , ??? at age 73. Heart disease Myocardial infarction Sister No problems noted. Brother Mental disorder Depression Brother No problems noted. Brother No problems noted. Grandmother Diabetes Maternal Uncle Diabetes Social History Smoking/Tobacco Use Status: Former Tobacco Use tobacco type: cigarettes Quit Date: 02/26/03 Smoking risk assessment performed?: Yes Alcohol Intake: current Alcohol Intake frequency: a few times a month Substance use type: does not use Adopted: No Caregiver/Support person: No Foster care: No Household members: spouse and children Number of Children: 4 number of grandchildren: 6 Communication Needs: Corrective Lenses Education Level: high school Do you need help understanding health information?: Never current occupation: Dance Teacher Pets and animals: No Sexually active: Yes Do you think of yourself as: straight/heterosexual Current gender identity: male What is your relationship status?: How often do you talk on the phone with friends or family?: twice per week Panel score (0-1 are the most socially isolated patients): 1 What type of physical activity do you participate in: none Duration: 45-60 minutes/day Frequency: daily Nan/Pentecostalism: None Special nan needs: No Seatbelt use: always Helmet use: No Drive intox or ride w/intox bulk delivery driver: No Water heater temp set <120 deg: Yes Working smoke detector in home: Yes Fire extinguisher in home: Yes Carbon monox detector in home: Yes Do you feel safe at home: Yes Do you feel safe in your relationship?: Yes Exam Narrative Exam Narrative: Const: WDWN male in NAD. HEENT: NC/AT. Normal facial exam. No lip/tongue/oral swelling. Eyes: Normal conjunctiva and sclera. Neck: Supple. Trachea midline. Lungs: Normal respiratory effort. Lungs are clear. Cor: RRR without murmur/gallop. Neuro: A+O x 3. Normal speech, mentation, gait. Cranial nerves II - XII grossly intact. No gross motor or sensory deficit. Skin: Warm and dry with diffuse maculopapular rash involving entire body. Course Vital Signs Vital signs: Vital Signs Temperature 97.2 F L 12/24/20 02:35 Pulse 96 H 12/24/20 02:35 Respiratory Rate 18 12/24/20 02:35 Blood Pressure 182/95 H 12/24/20 02:35 Pulse Oximetry 100 12/24/20 02:35 Temperature 97.2 F L 12/24/20 02:35 Temperature Source Temporal Artery Scan 12/24/20 02:35 Pulse 96 H 12/24/20 02:35 Respiratory Rate 18 12/24/20 02:35 Blood Pressure 182/95 H 12/24/20 02:35 Pulse Oximetry 100 12/24/20 02:35 Pain Level 0 12/24/20 02:35
[2020-12-24] MEDS: predniSONE 20 MG TAB 60 MG PO (03:02)
== END 2020-12-24 03:25 | disposition home or self-care (01) ==
PROVIDERS: Emergency Provider Emergency Medicine; PCP Nurse Practitioner Family
DX: R21 Rash and other nonspecific skin eruption (principal); L29.8 Other pruritus; T37.8X5A Adverse effect of other specified systemic anti-infectives and antiparasitics, initial encounter
CPT/HCPCS: 99283; J7512

== ENCOUNTER 2020-12-27 02:48 | Outpatient (CLI) | payer BC, SELFPAY ==
[2020-12-27 13:03] LABS: COMMENT (LAB VIEW ONLY) 97.32 mg/dL
[2020-12-27 13:32] LABS: Calculated LDL 32 mg/dL (<100); Cholesterol 126 mg/dL (<200); HDL Cholesterol 42 mg/dL (40-60); Triglyceride 260 mg/dL (<150)
[2020-12-28 10:55] LABS: Hepatitis C Ab w Rflx HCV PCR Negative (Negative)
== END 2020-12-27 02:49 | disposition home or self-care (01) ==
LOC: LBO 02:48
PROVIDERS: PCP Nurse Practitioner Family; Visit Provider Nurse Practitioner Family
DX: Z11.59 Encounter for screening for other viral diseases; E11.9 Type 2 diabetes mellitus without complications; E78.5 Hyperlipidemia, unspecified
CPT/HCPCS: 80061; 86803; 82043; 82570

== ENCOUNTER 2021-01-28 15:37 | Outpatient (REF) | payer BC, SELFPAY ==
[2021-01-28 19:17] LABS: COMMENT (LAB VIEW ONLY) 73.91 mg/dL
[2021-01-28 19:25] LABS: Microalb ug/mg Crea 596.7 ug/mg Cr
== END 2021-01-28 15:38 | disposition home or self-care (01) ==
LOC: LBN 15:37
PROVIDERS: PCP Nurse Practitioner Family; Visit Provider Nurse Practitioner Family
DX: E11.29 Type 2 diabetes mellitus with other diabetic kidney complication; R80.9 Proteinuria, unspecified
CPT/HCPCS: 82043; 82570

== ENCOUNTER 2021-02-08 08:20 | Day surgery (SDC) | payer OTHER, SELFPAY ==
[2021-02-08] VITALS (11 sets, daily range): BP systolic 92–180; BP diastolic 49–106; PULSE 99–118; RESP 16–21; TEMP 36.5–37.1; O2SAT 95–99; BMI 38.5
--- NOTE | 2021-02-08 08:54 | W.ED.GENAD ---
Discharge Plan Disposition Patient Disposition: [facility] DAY SURGERY [facility] Condition: Stable Discharge Details Clinical Impression: Open fracture of right elbow Primary Care Provider: Rebekah Leavitt ED Provider: Chester Guido Home Meds and New Rx's Prescriptions: No Action Trulicity 3 mg/0.5 mL pen injector 3 mg subcut QWEEK Qty: 6 RF: 0 (DME) FreeStyle Shobha 2 Sensor Kit See Rx Instructions .ROUTE .MEDSUPPLY Qty: 6 RF: 3 (DME) FreeStyle Shobha 2 [place] Misc See Rx Instructions .ROUTE .MEDSUPPLY Qty: 1 RF: 0 insulin lispro [Humalog KwikPen Insulin] 100 unit/mL insulin pen 35 unit SC QAC Qty: 12 RF: 11 hydrochlorothiazide 12.5 mg tablet 12.5 mg PO DAILY AM Qty: 90 RF: 3 sildenafil [Viagra] 100 mg tablet 50 mg PO ONCE PRN (Reason: sexual activity) Qty: 15 RF: 0 atorvastatin [Lipitor] 40 mg tablet 40 mg PO DAILY Qty: 90 RF: 3 metformin 1,000 mg tablet 1,000 mg PO BID Qty: 180 RF: 3 acetaminophen 500 mg capsule 1,000 mg PO Q8H PRNRF: 0 aspirin [Aspir-81] 81 mg tablet,delayed release (DR/EC) 81 mg PO BID RF: 0 (DME) pen needle, diabetic 31 gauge x 1/3 needle 1 ea Miscellaneous HS Qty: 500 RF: 3 omeprazole 20 mg capsule,delayed release(DR/EC) 20 mg PO DAILY Qty: 90 RF: 3 losartan 100 mg tablet 100 mg PO DAILY Qty: 90 RF: 3 Tresiba FlexTouch U-200 200 unit/mL (3 mL) insulin pen 60 unit subcut BID Qty: 6 RF: 11 Medical Decision Making 51-year-old gentleman, [id number], presents with right elbow injury status post fall from a trailer. There does appear to be an obvious deformity, concern for fracture and/or dislocation. Given the slight trickle of blood from the posterior aspect, concern for potential open fracture. Will obtain x-ray and consult with orthopedics. X-ray reveals a distracted comminuted olecranon fracture. Case discussed with Dr. Sewell. Will obtain IV access, give 2 g IV Ancef, routine screening laboratory values and a Covid test. Dr. Sewell will come to the ER personally evaluate the patient. In the meantime the wound was cleaned and dressed. Patient states the pain is mild, declines any analgesia. Dr. Sewell evaluated the patient, please see his note. Plan is for the patient to be discharged from the ER and go directly to day surgery, have surgery today then likely subsequently discharged home later today, not admitted. This documentation was generated using [employer]ged Accessation system, please disregard any oddities of phrase or misspellings. Medical Records Medical records reviewed: Yes I reviewed the patient's medical records. Imaging Data Radiologic Study: Attestation: I personally reviewed and interpreted this imaging study as follows: Imaging: X-Ray Radiologist's impression: Exam(s) XR ELBOW RT COMPLETE EXAM: XR ELBOW RT COMPLETE CLINICAL HISTORY: fall, direct blow. TECHNIQUE: 2D digital imaging was performed of the left elbow. Three images were obtained. AP, lateral and oblique views were obtained. COMPARISON: No exams were available for comparison FINDINGS: BONES: There is an acute comminuted fracture through the base of the olecranon. There is 6 mm of distraction. No bony destructive lesion is seen. JOINTS: The elbow is normally aligned. No joint effusion is seen. SOFT TISSUE: Normal. IMPRESSION: Distracted comminuted olecranon fracture. Lab Data Lab results reviewed: Yes I reviewed the patient's lab results. Labs: Laboratory Tests Range/Units 02/08/21 02/08/21 02/08/21 09:40 09:40 09:40 WBC (4.4-10.8) 10^3/uL 13.86 H RBC (4.36-5.78) 10^6/uL 3.92 L Hgb (13.5-17.5) g/dL 11.5 L Hct (40.0-50.0) % 35.7 L MCV (80-95) fL 91.1 MCH (27.0-33.0) pg 29.3 MCHC (32.0-36.0) % 32.2 RDW (11.8-14.1) % 13.2 Plt Count (130-400) 10^3/uL 383 MPV (8.0-11.0) fL 8.4 Immature Gran % 0.5 Neutrophils % 85.1 Lymphocytes % 7.1 Monocytes % 6.3 Eosinophils % 0.6 Basophils % 0.4 Nucleated RBC % % 0 Absolute Neutrophils (1.2-6.7) 10^3/uL 11.79 H Absolute Lymphocytes (1.2-3.4) 10^3/uL 0.98 L Absolute Monocytes (0.1-0.8) 10^3/uL 0.87 H Absolute Eosinophils (0.0-0.7) 10^3/uL 0.08 Absolute Basophils (0.0-0.2) 10^3/uL 0.06 PT (9.3-11.0) sec 9.8 INR (0.9-1.1) 1.0 APTT (21.0-27.5) sec 23.9 Sodium (136-145) mmol/L 140 Potassium (3.5-5.1) mmol/L 4.1 Chloride (98-107) mmol/L 102 Carbon Dioxide (21.0-32.0) mmol/L 26.1 Anion Gap (3-11) mmol/L 11.9 H BUN (7-18) mg/dL 27 H Creatinine (0.70-1.30) mg/dL 1.6 H Estimated GFR/1.73 m2 (mL/min/1.73m2) 45.44 Glucose (74-106) mg/dL 104 Calcium (8.5-10.1) mg/dL 9.4 Total Bilirubin (0.2-1.0) mg/dL 0.7 AST (15-37) U/L 31 ALT (16-63) U/L 42 Alkaline Phosphatase (46-116) U/L 101 Total Protein (6.4-8.2) g/dL 8.2 Albumin (3.4-5.0) g/dL 4.2 COVID-19 Source SARS-CoV-2 (PCR) (Negative) Range/Units 02/08/21 10:05 WBC (4.4-10.8) 10^3/uL RBC (4.36-5.78) 10^6/uL Hgb (13.5-17.5) g/dL Hct (40.0-50.0) % MCV (80-95) fL MCH (27.0-33.0) pg MCHC (32.0-36.0) % RDW (11.8-14.1) % Plt Count (130-400) 10^3/uL MPV (8.0-11.0) fL Immature Gran % Neutrophils % Lymphocytes % Monocytes % Eosinophils % Basophils % Nucleated RBC % % Absolute Neutrophils (1.2-6.7) 10^3/uL Absolute Lymphocytes (1.2-3.4) 10^3/uL Absolute Monocytes (0.1-0.8) 10^3/uL Absolute Eosinophils (0.0-0.7) 10^3/uL Absolute Basophils (0.0-0.2) 10^3/uL PT (9.3-11.0) sec INR (0.9-1.1) APTT (21.0-27.5) sec Sodium (136-145) mmol/L Potassium (3.5-5.1) mmol/L Chloride (98-107) mmol/L Carbon Dioxide (21.0-32.0) mmol/L Anion Gap (3-11) mmol/L BUN (7-18) mg/dL Creatinine (0.70-1.30) mg/dL Estimated GFR/1.73 m2 (mL/min/1.73m2) Glucose (74-106) mg/dL Calcium (8.5-10.1) mg/dL Total Bilirubin (0.2-1.0) mg/dL AST (15-37) U/L ALT (16-63) U/L Alkaline Phosphatase (46-116) U/L Total Protein (6.4-8.2) g/dL Albumin (3.4-5.0) g/dL COVID-19 Source Nasal/Nares SARS-CoV-2 (PCR) (Negative) Negative HPI General Mode of arrival: ambulatory. Date/Time Provider Initiated Documentation: 02/08/21 08:46. Limitations to Documentation: no limitations. Information obtained by: patient. HPI Narrative: This is a 51-year-old gentleman, [id number], past medical history of hypertension, diabetes, presenting to the ER for evaluation of a right elbow injury. Patient states that just prior to arrival he was at work, was up in a trailer about a foot off the ground, slipped through a gap falling onto the ground directly onto his right elbow. Reports feeling and hearing a popping sensation. Reports pain is moderate, worse with movement. Denies any other injury. Denies numbness, tingling, weakness. Has not taken any medication for his symptoms. Patient was asymptomatic prior to the fall. Tetanus status is up-to-date patient also reports being for Covid. Denies recent illness. Reports the pain is tolerable, declines any analgesia. Related Data Home Medications Medication Instructions Recorded Confirmed acetaminophen 500 mg capsule 1,000 mg PO Q8H PRN cap 06/18/19 02/08/21 aspirin 81 mg tablet,delayed 81 mg PO BID tab 06/18/19 02/08/21 release pen needle, diabetic 31 gauge x #500 ea 01/29/20 02/08/2102/28 omeprazole 20 mg capsule,delayed 20 mg PO DAILY #90 tab-cap 03/29/20 02/08/21 release sildenafil 100 mg tablet 50 mg PO ONCE PRN #15 tab-cap 07/01/20 02/08/21 losartan 100 mg tablet 100 mg PO DAILY #90 tab-cap 09/27/20 02/08/21 atorvastatin 40 mg tablet 40 mg PO DAILY #90 tab-cap 12/09/20 02/08/21 metformin 1,000 mg tablet 1,000 mg PO BID #180 tab-cap 12/09/20 02/08/21 dulaglutide 3 mg/0.5 mL 3 mg SUBCUT QWEEK #6 ml 01/28/21 02/08/21 subcutaneous pen injector flash glucose scanning reader #1 ea 01/28/21 02/08/21 flash glucose sensor #6 ea 01/28/21 02/08/21 hydrochlorothiazide 12.5 mg tablet 12.5 mg PO DAILY AM #90 tab-cap 01/28/21 02/08/21 insulin lispro 100 unit/mL 35 unit SC QAC #12 syrg 01/28/21 02/08/21 subcutaneous pen insulin degludec 200 unit/mL (3 60 unit SUBCUT BID #6 syrg 01/31/21 02/08/21 mL) subcutaneous pen Previous Rx's Medication Instructions Recorded pen needle, diabetic 31 gauge x #500 ea 01/29/2002/28 omeprazole 20 mg capsule,delayed 20 mg PO DAILY #90 tab-cap 03/29/20 release sildenafil 100 mg tablet 50 mg PO ONCE PRN #15 tab-cap 07/01/20 losartan 100 mg tablet 100 mg PO DAILY #90 tab-cap 09/27/20 atorvastatin 40 mg tablet 40 mg PO DAILY #90 tab-cap 12/09/20 metformin 1,000 mg tablet 1,000 mg PO BID #180 tab-cap 12/09/20 dulaglutide 3 mg/0.5 mL 3 mg SUBCUT QWEEK #6 ml 01/28/21 subcutaneous pen injector flash glucose scanning reader #1 ea 01/28/21 flash glucose sensor #6 ea 01/28/21 hydrochlorothiazide 12.5 mg tablet 12.5 mg PO DAILY AM #90 tab-cap 01/28/21 insulin lispro 100 unit/mL 35 unit SC QAC #12 syrg 01/28/21 subcutaneous pen insulin degludec 200 unit/mL (3 60 unit SUBCUT BID #6 syrg 01/31/21 mL) subcutaneous pen Allergies Allergy/AdvReac Type Severity Reaction Status Date / Time itraconazole Allergy Intermediate rash Verified 02/08/21 08:44 General Stated Complaint: Orthopedic AMANDA: 3 Review of Systems Constitutional Constitutional: Denies headache(s) and Denies weakness ENT Ears, Nose, Mouth, and Throat: Denies headache(s) and Denies neck pain Cardiovascular Cardiovascular: Denies chest pain and Denies dyspnea Respiratory Respiratory: Denies dyspnea Gastrointestinal Gastrointestinal: Denies abdominal pain, Denies nausea and Denies vomiting Musculoskeletal Musculoskeletal: Reports arthralgias, Denies neck pain, Denies numbness, Reports stiffness and Denies tingling Integumentary/Breasts Skin/Breast: Denies erythema Neurologic Neurologic: Denies headache(s), Denies numbness, Denies tingling and Denies weakness Hematologic/Lymphatic Hematologic/Lymphatic: Denies easy bleeding and Denies easy bruising PFSH All Active Problems (Updated 02/08/21 @ 11:47 by Suraj Sewell MD) Open fracture of olecranon process of right ulna with intraarticular extension (Acute) Open fracture of right elbow (Acute) Allergic drug reaction (Acute) Infection of joint of ankle (Acute) Closed pilon fracture of right tibia (Acute) Arthritis of ankle, right (Acute) Erectile dysfunction (Acute) Osteomyelitis (Acute ~05/2019) 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 Scheduled for removal 03/26/20 2 w post op R ankle- removal of hardware. S/P ankle fusion (09/23/20) (Gitajn) right AXB TTC fusion nail removal, bone biopsy new AXB nail placed 11/11/20 exchange of antibiotic nail Family History Mother , Cancer at age 68. Neoplasm Recurrent breast CA? Father , ??? at age 73. Heart disease Myocardial infarction Sister No problems noted. Brother Mental disorder Depression Brother No problems noted. Brother No problems noted. Grandmother Diabetes Maternal Uncle Diabetes Social History Smoking/Tobacco Use Status: Former Tobacco Use tobacco type: cigarettes Quit Date: 02/26/03 Smoking risk assessment performed?: Yes Alcohol Intake: current Alcohol Intake frequency: a few times a month Drug use: Never Substance use type: does not use Adopted: No Caregiver/Support person: No Foster care: No Household members: spouse and children Number of Children: 4 number of grandchildren: 6 Communication Needs: Corrective Lenses Education Level: high school Do you need help understanding health information?: Never current occupation: Remote Computer Terminal Operator Pets and animals: No Sexually active: Yes Do you think of yourself as: straight/heterosexual Current gender identity: male What is your relationship status?: How often do you talk on the phone with friends or family?: twice per week Panel score (0-1 are the most socially isolated patients): 1 What type of physical activity do you participate in: none Duration: 45-60 minutes/day Frequency: daily Nan/Restorationist: None Special nan needs: No Seatbelt use: always Helmet use: No Drive intox or ride w/intox delivery driver/supervisor: No Water heater temp set <120 deg: Yes Working smoke detector in home: Yes Fire extinguisher in home: Yes Carbon monox detector in home: Yes Do you feel safe at home: Yes Do you feel safe in your relationship?: Yes Exam Const General: cooperative, healthy appearing, comfortable and no acute distress Orientation: alert and awake [facility] Head: normal to inspection, normocephalic and atraumatic Face and sinus: normal facial exam Mouth: moist mucous membranes Eyes General: appearance normal, both eyes and all related structures Conjunctivae: conjunctivae normal Neck Neck: normal visual inspection, trachea midline and supple Resp Effort & Inspection: normal respiratory effort and able to speak in complete sentences Auscultation: clear to auscultation bilaterally Cardio Rate: tachycardic (108) Rhythm: regular rhythm Skin General skin exam: no rashes or lesions noted Neuro General: patient alert, patient awake, moves all extremities and no focal motor deficits Cognition: normal cognition Speech: speech normal Gait: normal gait Motor: muscle tone normal throughout Sensory Exam: no sensory deficits noted Extrem General: capillary refill normal Other: Right shoulder, wrist, hand unremarkable. Right elbow held in almost 90 degree angle. There is obvious deformity with diffuse ecchymosis and swelling. Posterior aspect there appears to be a 0.25 cm laceration with an ever so slight trickle of blood. Diffuse discomfort. Neuro, vascular, tendon intact. Normal radial pulse and capillary refill. Psych Appearance: grossly normal Mental Status: mental status grossly normal Course Vital Signs Vital signs: Vital Signs Temperature 36.7 C 02/08/21 08:38 Pulse 110 H 02/08/21 08:38 Blood Pressure 165/100 H 02/08/21 08:38 Pulse Oximetry 98 02/08/21 08:38 Temperature 36.7 C 02/08/21 08:38 Temperature Source Temporal Artery Scan 02/08/21 08:38 Pulse 110 H 02/08/21 08:38 Respiratory Effort Non-Labored 02/08/21 08:42 Blood Pressure 165/100 H 02/08/21 08:38 Blood Pressure Position Sitting 02/08/21 08:38 Pulse Oximetry 98 02/08/21 08:38 Oxygen Delivery Method Room Air 02/08/21 08:38 Oxygen Flow Rate 0 02/08/21 08:38 Pain Level 7 02/08/21 08:38 PAWSS Have you Been Recently Intoxicated or Drunk Within the Last 30 days?: No Have you Ever Experienced Previous Episodes of Alcohol Withdrawal?: No Have you ever Experienced Withdrawal Seizures?: No Have you ever Experienced Delirium Tremens(DT)s?: No Have you ever undergone Alcohol Rehabilitation Treatment (i.e, inpt ot outpatient treatment programs)?: No Have you ever Experienced Blackouts?: No Have you ever Combined Alcohol with other Downers within the last 90 days?: No Have you ever Combined Alcohol with any other Substance of Abuse during the last 90 days?: No Positive Blood Alcohol level on Presentation? [PCS.BAL]: No Evidence of Increased Autonomic Activity (i.e. HR>120, tremor, sweating, agitation, nausea)?: No Result: 0
--- NOTE | 2021-02-08 09:00 | DI.RAD_ITS ---
Exam(s) XR ELBOW RT COMPLETE EXAM: XR ELBOW RT COMPLETE CLINICAL HISTORY: fall, direct blow. TECHNIQUE: 2D digital imaging was performed of the left elbow. Three images were obtained. AP, lat eral and oblique views were obtained. COMPARISON: No exams were available for comparison FINDINGS: BONES: There is an acute comminuted fracture through the base of the olecranon. There is 6 mm of dis traction. No bony destructive lesion is seen. JOINTS: The elbow is normally aligned. No joint effusion is seen. SOFT TISSUE: Normal. IMPRESSION: Distracted comminuted olecranon fracture. DATA REPOSITORY: RADIATION DOSE DELIVERED:
[2021-02-08 09:53] LABS: Abs Immature Grans 0.07 10^3/uL (0.0-0.06); Absolute Basophil Count 0.06 10^3/uL (0.0-0.2); Absolute Eosinophil Count 0.08 10^3/uL (0.0-0.7); Absolute Lymphocyte Count 0.98 10^3/uL (1.2-3.4); Absolute Neutrophil Count 11.79 10^3/uL (1.2-6.7); Basophils % 0.4; Eosinophils % 0.6; HCT 35.7 % (40.0-50.0); HGB 11.5 g/dL (13.5-17.5); Immature Grans % 0.5; Lymphocytes % 7.1; MCH 29.3 pg (27.0-33.0); MCHC 32.2 % (32.0-36.0); MCV 91.1 fL (80-95); MPV 8.4 fL (8.0-11.0); Monocytes % 6.3; Neutrophils % 85.1; Nucleated RBC 0 %; Platelet Count 383 10^3/uL (130-400); RBC 3.92 10^6/uL (4.36-5.78); RDW 13.2 % (11.8-14.1); RDW-SD 43.6 fL; WBC 13.86 10^3/uL (4.4-10.8)
[2021-02-08 09:55] LABS: Absolute Monocyte Count 0.87 10^3/uL (0.1-0.8)
[2021-02-08 10:06] LABS: PTT Activated 23.9 sec (21.0-27.5); Prothrombin Time 9.8 sec (9.3-11.0)
[2021-02-08 10:08] LABS: ALT 42 U/L (16-63); AST 31 U/L (15-37); Albumin 4.2 g/dL (3.4-5.0); Alkaline Phosphatase 101 U/L (46-116); Anion Gap 11.9 mmol/L (3-11); BUN 27 mg/dL (7-18); Bilirubin, Total 0.7 mg/dL (0.2-1.0); CO2 26.1 mmol/L (21.0-32.0); CREATININE 1.6 mg/dL (0.70-1.30); Calcium 9.4 mg/dL (8.5-10.1); Chloride 102 mmol/L (98-107); Estimated GFR 45.44 (mL/min/1.73m2); Glucose 104 mg/dL (74-106); Potassium 4.1 mmol/L (3.5-5.1); Sodium 140 mmol/L (136-145); Total Protein 8.2 g/dL (6.4-8.2)
[2021-02-08] MEDS: ceFAZolin 2,000 MG in Normal Saline 100 ML 200 MG IVPB (10:12)
[2021-02-08 10:20] LABS: Source Nasal/Nares
[2021-02-08 10:58] LABS: COVID-19 PCR Negative (Negative)
--- NOTE | 2021-02-08 11:04 | ANES.PREOP_ITS ---
General Info Date of Service Date Performed: 02/08/21 Height: 5 ft 10 in Weight: 122.016 kg Body Mass Index (BMI): 38.5 Surgical Procedure: Operation Date: 02/08/21 15:55 Proposed Procedures Side Surgeon p Elbow ORIF Suraj Sewell MD Meds Allergies and Home Medications Allergies Allergy/AdvReac Type Severity Reaction Status Date / Time itraconazole Allergy Intermediate rash Verified 02/08/21 12:25 Home Medication Medication Instructions Recorded acetaminophen 500 mg capsule 1,000 mg PO Q8H PRN cap 06/18/19 aspirin 81 mg tablet,delayed 81 mg PO BID tab 06/18/19 release pen needle, diabetic 31 gauge x #500 ea 01/29/20/ omeprazole 20 mg capsule,delayed 20 mg PO DAILY #90 tab-cap 03/29/20 release sildenafil 100 mg tablet 50 mg PO ONCE PRN #15 tab-cap 07/01/20 losartan 100 mg tablet 100 mg PO DAILY #90 tab-cap 09/27/20 atorvastatin 40 mg tablet 40 mg PO DAILY #90 tab-cap 12/09/20 metformin 1,000 mg tablet 1,000 mg PO BID #180 tab-cap 12/09/20 dulaglutide 3 mg/0.5 mL 3 mg SUBCUT QWEEK #6 ml 01/28/21 subcutaneous pen injector flash glucose scanning reader #1 ea 01/28/21 flash glucose sensor #6 ea 01/28/21 hydrochlorothiazide 12.5 mg tablet 12.5 mg PO DAILY AM #90 tab-cap 01/28/21 insulin lispro 100 unit/mL 35 unit SC QAC #12 syrg 01/28/21 subcutaneous pen insulin degludec 200 unit/mL (3 60 unit SUBCUT BID #6 syrg 01/31/21 mL) subcutaneous pen Current Visit Medications: Current Medications Generic Name Dose Route Start Last Admin Trade Name Freq PRN Reason Stop Dose Admin IV Miscellaneous Supplies 1 each 02/08/21 09:30 Iv Access IV DIRECTED [facility] Active Problems Active Problems: Problem Status Onset Code Open fracture of right elbow S42.401B Allergic drug reaction T78.40XA Infection of joint of ankle M00.9 Closed pilon fracture of right tibia S82.871A Arthritis of ankle, right M19.071 Erectile dysfunction N52.9 Osteomyelitis ~05/2019 M86.9 intermediate (current) use of antibiotics Z79.2 Infection of orthopedic implant T84.7XXA Type 2 diabetes mellitus with microalbuminuria, with long-term current use of insulin E11.29, R80.9, Z79.4 Hyperlipidemia, unspecified E78.5 Essential hypertension I10 Microalbuminuria 12/11/16 R80.9 Medical History Medical History (Updated 02/08/21 @ 13:03 by ANTONY Rueda) Closed displaced pilon fracture of right tibia (~12/31/18) 03/12/20 Hardware removal. History of gastroesophageal reflux (GERD) HLD (hyperlipidemia) HTN (hypertension) T2DM (type 2 diabetes mellitus) Surgical History Surgical History (Updated 02/08/21 @ 13:03 by ANTONY Rueda) Carpal tunnel release, right Elbow surgery, left H/O ankle fusion [place]06[place] [facility] [place] union of ankle fusion with persistent infection History of removal of internal fixation device (12/31/18) rgt pilon ORIF Nasal surgergy For infection Repair, ACL L S/P ankle arthrodesis 09/09/19 right ankle arthrodesis surgery [facility] [place]20 Hardware infectious sx. Scheduled for removal 03/26/20 2 w post op R ankle- removal of hardware. S/P ankle fusion (09/23/20) (Gitajn) right AXB TTC fusion nail removal, bone biopsy new AXB nail placed 11/11/20 exchange of antibiotic nail Tobacco Smoking/Tobacco Use Status: Former Tobacco Use Passive smoking exposure: No Alcohol Alcohol Intake: current Alcohol intake frequency: a few times a month Substance Use Substance use: Never Substance use type: does not use Vital Signs and Lab Results Vital Signs Most Recent Vital Signs in EMR: Most Recent Vital Signs Temp Pulse BP Pulse Ox 36.7 C 110 H 165/100 H 98 02/08/21 08:38 02/08/21 08:38 02/08/21 08:38 02/08/21 08:38 Lab Results Result Diagrams: 02/08/21 09:40 02/08/21 09:40 Blood Type / Crossmatch: No Data to Display Complete Blood Count: White Blood Count 13.86 10^3/uL (4.4-10.8) H 02/08/21 09:40 02/08/21 Red Blood Count 3.92 10^6/uL (4.36-5.78) L 02/08/21 09:40 02/08/21 Hemoglobin 11.5 g/dL (13.5-17.5) L 02/08/21 09:40 02/08/21 Hematocrit 35.7 % (40.0-50.0) L 02/08/21 09:40 02/08/21 Platelet Count 383 10^3/uL (130-400) 02/08/21 09:40 02/08/21 Complete Metabolic Panel: Sodium Level 140 mmol/L (136-145) 02/08/21 09:40 02/08/21 Potassium Level 4.1 mmol/L (3.5-5.1) 02/08/21 09:40 02/08/21 Chloride Level 102 mmol/L (98-107) 02/08/21 09:40 02/08/21 Carbon Dioxide Level 26.1 mmol/L (21.0-32.0) 02/08/21 09:40 02/08/21 Blood Urea Nitrogen 27 mg/dL (7-18) H 02/08/21 09:40 02/08/21 Creatinine 1.6 mg/dL (0.70-1.30) H 02/08/21 09:40 02/08/21 Estimated GFR/1.73 m2 45.44 (mL/min/1.73m2) 02/08/21 09:40 02/08/21 Calcium Level 9.4 mg/dL (8.5-10.1) 02/08/21 09:40 02/08/21 Albumin 4.2 g/dL (3.4-5.0) 02/08/21 09:40 02/08/21 Glucose Level 104 mg/dL (74-106) 02/08/21 09:40 02/08/21 Hemoglobin A1c 7.8 % (4.5-5.7) H 01/28/21 13:51 01/28/21 Liver Function Panel: 2 Alanine Aminotransferase (ALT/SGPT) 42 U/L (16-63) 02/08/21 09:40 02/08/21 Aspartate Amino Transf (AST/SGOT) 31 U/L (15-37) 02/08/21 09:40 02/08/21 Coagulation Panel: INR International Normalized Ratio 1.0 (0.9-1.1) 02/08/21 09:40 02/08/21 Prothrombin Time 9.8 sec (9.3-11.0) 02/08/21 09:40 02/08/21 Activated Partial Thromboplast Time 23.9 sec (21.0-27.5) 02/08/21 09:40 02/08/21 Cardiac Panel: No Data to Display Arterial Blood Gas: No Data to Display Venous Blood Gas: No Data to Display Pancreas Panel: No Data to Display Thyroid Panel: No Data to Display Infectious Disease: Coronavirus (COVID-19)(PCR) Negative (Negative) 02/08/21 10:05 02/08/21 Coronavirus 2019 Source Nasal/Nares 02/08/21 10:05 02/08/21 Blood Cultures: No Data to Display Toxicology Panel: No Data to Display Anesthesia Assessment and Plan Anesthesia History Personal History: No History of Anesthesia Complications Family History: No Family History of Anesthesia Complications Exercise Tolerance Exercise Tolerance: Metabolic Equivalents>4 Pertinent Negatives Pertinent Negatives: No Symptoms of GERD, No Major Cardiovascular Symptoms or Complaints, No Major Pulmonary Symptoms or Complaints and No History of CVA/TIA Cardiac & Pulmonary Exam Cardiac Exam: Normal S1/S2 Heart Sounds Pulmonary Exam: Clear Bilateral Breath Sounds Implantable Cardiac Device Does patient have a Pacemaker or an ICD?: No Airway Exam Known Difficult Airway: No Mallampati Class: 2 Mouth Opening: Normal (> 3cm) Thyromental Distance: Greater than 3 cm Neck Range of Motion: Full ROM Neck Circumference: Normal Teeth Condition: Generalized Poor Dentition and Other (Missing) ASA Classification ASA Score: ASA 2 Emergency Case?: Yes NPO Status NPO Status: NPO Clears >2 hours, Solids >8 hours Anesthesia Plan Resuscitation Status: Full Code Anesthesia Technique: General Anesthesia Airway Planned: Endotracheal Tube Monitors Used: Standard Monitors
[2021-02-08] MEDS: Normal Saline Flush 10 ML SYR (12:19)
[2021-02-08] MEDS: Lactated Ringers 1,000 ML 80 ML IV (12:19)
--- NOTE | 2021-02-08 13:00 | HPE_ITS ---
Documented by User: ANTONY Rueda 02/08/21 13:08 Date of service: 02/08/21 Assessment and Plan Assessment and plan (1) Open fracture of olecranon process of right ulna with intraarticular exten joel: Status: Acute Assessment and plan: ORIF with I&D of the right elbow. Details of surgery were discussed with patient as well as risks and pertinent anatomy. All questions were answered. History of Present Illness History of Present Illness Chief Complaint: Right elbow fracture Narrative: Cm is a 51-year-old male who entered to the emergency room today with an injur y to his right elbow. He states that he was standing on a trailer approximately 1 foot off of the ground when he fell through a gap in the trailer and landed on the ground directly on his right elbow. In the emergency room he had x-rays which revealed a fracture of the olecranon which was mildly displaced. He also had a wound over his elbow making this an open fracture. He did have a discussion with Dr. Sewell about treatment options, and he will move forward with an ORIF of his right elbow with irrigation and debridement. Pertinent Surgical Information Cm has a history of diabetes with a most recent A1c of 7.8. He has has a history of HTN controlled with insulin therapy. Patient denies history of CVA, CA, angina, asthma, COPD, renal or liver disorders, hepatitis, bleeding disorders, immune or thyroid disorders. No complications from anesthesia. Review of Systems Constitutional Constitutional: Denies fever(s) ENT Ears, Nose, Mouth, and Throat: Denies dizziness and Denies sore throat Cardiovascular Cardiovascular: Denies chest pain, Denies palpitations and Denies dyspnea Respiratory Respiratory: Denies cough and Denies dyspnea Gastrointestinal Gastrointestinal: Denies abdominal pain, Denies melena, Denies hematochezia, Denies diarrhea, Denies nausea and Denies vomiting Genitourinary Genitourinary: Denies hematuria and Denies dysuria Neurologic Neurologic: Denies dizziness Endocrine Endocrine: Denies palpitations PFSH All Active Problems (Updated 02/08/21 @ 13:03 by ANTONY Rueda) Microalbuminuria (Chronic 12/11/16) Type 2 diabetes mellitus with microalbuminuria, with long-term current use of insulin (Chronic) Essential hypertension (Chronic) Hyperlipidemia, unspecified (Chronic) Infection of orthopedic implant (Acute) 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 Scheduled for removal 03/26/20 2 w post op R ankle- removal of hardware. S/P ankle fusion (09/23/20) (Gitajn) right AXB TTC fusion nail removal, bone biopsy new AXB nail placed 11/11/20 exchange of antibiotic nail Family History Mother , Cancer at age 68. Neoplasm Recurrent breast CA? Father , ??? at age 73. Heart disease Myocardial infarction Sister No problems noted. Brother Mental disorder Depression Brother No problems noted. Brother No problems noted. 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 Pets and animals: No Sexually active: Yes Do you think of yourself as: straight/heterosexual Current gender identity: male What is your relationship status?: How often do you talk on the phone with friends or family?: twice per week Panel score (0-1 are the most socially isolated patients): 1 What type of physical activity do you participate in: none Duration: 45-60 minutes/day Frequency: daily Nan/Mormonism: None Special nan needs: No Seatbelt use: always Helmet use: No Drive intox or ride w/intox day haul or farm charter bus driver: No Water heater temp set <120 deg: Yes Working smoke detector in home: Yes Fire extinguisher in home: Yes Carbon monox detector in home: Yes Do you feel safe at home: Yes Do you feel safe in your relationship?: Yes Meds Allergies and Home Medications Allergies Allergy/AdvReac Type Severity Reaction Status Date / Time itraconazole Allergy Intermediate rash Verified 02/08/21 12:25 Home Medications Medication Instructions Recorded Confirmed Type acetaminophen 500 mg capsule 1,000 mg PO Q8H PRN cap 06/18/19 02/08/21 History aspirin 81 mg tablet,delayed 81 mg PO BID tab 06/18/19 02/08/21 History release pen needle, diabetic 31 gauge x #500 ea 01/29/20 02/08/21 Rx 1/3 omeprazole 20 mg capsule,delayed 20 mg PO DAILY #90 tab-cap 03/29/20 02/08/21 Rx release sildenafil 100 mg tablet 50 mg PO ONCE PRN #15 tab-cap 07/01/20 02/08/21 Rx losartan 100 mg tablet 100 mg PO DAILY #90 tab-cap 09/27/20 02/08/21 Rx atorvastatin 40 mg tablet 40 mg PO DAILY #90 tab-cap 12/09/20 02/08/21 Rx metformin 1,000 mg tablet 1,000 mg PO BID #180 tab-cap 12/09/20 02/08/21 Rx dulaglutide 3 mg/0.5 mL 3 mg SUBCUT QWEEK #6 ml 01/28/21 02/08/21 Rx subcutaneous pen injector flash glucose scanning reader #1 ea 01/28/21 02/08/21 Rx flash glucose sensor #6 ea 01/28/21 02/08/21 Rx hydrochlorothiazide 12.5 mg tablet 12.5 mg PO DAILY AM #90 tab-cap 01/28/21 02/08/21 Rx insulin lispro 100 unit/mL 35 unit SC QAC #12 syrg 01/28/21 02/08/21 Rx subcutaneous pen insulin degludec 200 unit/mL (3 60 unit SUBCUT BID #6 syrg 01/31/21 02/08/21 Rx mL) subcutaneous pen Exam Const General: cooperative and no acute distress Orientation: alert and awake [facility] Head: normocephalic and atraumatic Eyes Conjunctivae: conjunctivae normal Sclera: sclerae normal Resp Effort & Inspection: normal respiratory effort Auscultation: clear to auscultation bilaterally and no wheezes Cardio Rate: regular rate Rhythm: regular rhythm Heart Sounds: S1 normal, S2 normal and no murmurs GI Palpation: soft, no hepatosplenomegaly and nontender Auscultation: normal bowel sounds Results Labs Result diagrams: 02/08/21 09:40 02/08/21 09:40 Labs: Laboratory Results - last 24 hr 02/08/21 02/08/21 02/08/21 09:40 09:40 09:40 WBC 13.86 H RBC 3.92 L Hgb 11.5 L Hct 35.7 L MCV 91.1 MCH 29.3 MCHC 32.2 RDW 13.2 Plt Count 383 MPV 8.4 Immature Gran % 0.5 Neutrophils % 85.1 Lymphocytes % 7.1 Monocytes % 6.3 Eosinophils % 0.6 Basophils % 0.4 Nucleated RBC % 0 Absolute Neutrophils 11.79 H Absolute Lymphocytes 0.98 L Absolute Monocytes 0.87 H Absolute Eosinophils 0.08 Absolute Basophils 0.06 PT 9.8 INR 1.0 APTT 23.9 Sodium 140 Potassium 4.1 Chloride 102 Carbon Dioxide 26.1 Anion Gap 11.9 H BUN 27 H Creatinine 1.6 H Estimated GFR/1.73 m2 45.44 Glucose 104 Calcium 9.4 Total Bilirubin 0.7 AST 31 ALT 42 Alkaline Phosphatase 101 Total Protein 8.2 Albumin 4.2 COVID-19 Source SARS-CoV-2 (PCR) 02/08/21 10:05 WBC RBC Hgb Hct MCV MCH MCHC RDW Plt Count MPV Immature Gran % Neutrophils % Lymphocytes % Monocytes % Eosinophils % Basophils % Nucleated RBC % Absolute Neutrophils Absolute Lymphocytes Absolute Monocytes Absolute Eosinophils Absolute Basophils PT INR APTT Sodium Potassium Chloride Carbon Dioxide Anion Gap BUN Creatinine Estimated GFR/1.73 m2 Glucose Calcium Total Bilirubin AST ALT Alkaline Phosphatase Total Protein Albumin COVID-19 Source Nasal/Nares SARS-CoV-2 (PCR) Negative Last Vital Signs Temp 98.4 F 02/08/21 12:29 Pulse 107 H 02/08/21 12:29 Resp 16 02/08/21 12:29 BP 174/102 H 02/08/21 12:29 Pulse Ox 99 02/08/21 12:29 Documented by User: Suraj Sewell MD 02/08/21 14:44 Assessment and Plan Assessment and plan (1) Open fracture of olecranon process of right ulna with intraarticular extension: Status: Acute Assessment and plan: I interviewed and examined the patient with Ja López PA-C. I agree with the documentation as above. The assessment and plan were formulated with my direct involvement. Because a 51-year-old who suffered a direct trauma to his right elbow today landing on concrete. Unfortunate this represents a grade 1 open injury with a small laceration over the posterior aspect of the elbow. He has a transverse fracture through the intra-articular portion of the olecranon with displacement. There does not seem to be much comminution. Given the open laceration and a fracture I recommended irrigation and debridement with fracture fixation. He did receive a dose of antibiotics in the emergency department. Given is a grade 1 without any gross contamination we will plan for an aggressive irrigation debridement with fracture fixation and then discharged home with oral antibiotics. He does report history of having infections and he does have diabetes which has been under worsening control. I urged him to maintain close vigilance with his diabetic control to minimize the risk of infection. I would likely perform a lag screw type technique but may use the plate. Intraoperatively will make that determination. He will be placed in a sling afterwards. I reviewed the risk of the procedure to include bleeding, infection, pain, stiffness, damage to nerves and vessels, damage to muscle and tendons, hardware prominence, hardware failure, malunion, nonunion, need for repeat procedures. Despite these risk, he elects to proceed. Suraj Sewell MD FAAOS FAAHKS PFSH All Active Problems (Updated 02/08/21 @ 13:03 by ANTONY Rueda) Microalbuminuria (Chronic 12/11/16) Type 2 diabetes mellitus with microalbuminuria, with long-term current use of insulin (Chronic) Essential hypertension (Chronic) Hyperlipidemia, unspecified (Chronic) Infection of orthopedic implant (Acute) residential (current) use of antibiotics (Acute) Osteomyelitis (Acute ~05/2019) Erectile dysfunction (Acute) Arthritis of ankle, right (Acute) Closed pilon fracture of right tibia (Acute) Infection of joint of ankle (Acute) Allergic drug reaction (Acute) Open fracture of olecranon process of right ulna with intraarticular extension (Acute) Medical History (Updated 02/08/21 @ 13:03 by ANTONY Rueda) Closed displaced pilon fracture of right tibia (~12/31/18) 03/12/20 Hardware removal. 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 Scheduled for removal 03/26/20 2 w post op R ankle- removal of hardware. S/P ankle fusion (09/23/20) (Gitajn) right AXB TTC fusion nail removal, bone biopsy new AXB nail placed 11/11/20 exchange of antibiotic nail Family History Mother , Cancer at age 68. Neoplasm Recurrent breast CA? Father , ??? at age 73. Heart disease Myocardial infarction Sister No problems noted. Brother Mental disorder Depression Brother No problems noted. Brother No problems noted. 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 Pets and animals: No Sexually active: Yes Do you think of yourself as: straight/heterosexual Current gender identity: male What is your relationship status?: How often do you talk on the phone with friends or family?: twice per week Panel score (0-1 are the most socially isolated patients): 1 What type of physical activity do you participate in: none Duration: 45-60 minutes/day Frequency: daily Nan/Mormonism: None Special nan needs: No Seatbelt use: always Helmet use: No Drive intox or ride w/intox day haul or farm charter bus driver: No Water heater temp set <120 deg: Yes Working smoke detector in home: Yes Fire extinguisher in home: Yes Carbon monox detector in home: Yes Do you feel safe at home: Yes Do you feel safe in your relationship?: Yes Meds Allergies and Home Medications Allergies Allergy/AdvReac Type Severity Reaction Status Date / Time itraconazole Allergy Intermediate rash Verified 02/08/21 12:25 Home Medications Medication Instructions Recorded Confirmed Type acetaminophen 500 mg capsule 1,000 mg PO Q8H PRN cap 06/18/19 02/08/21 History aspirin 81 mg tablet,delayed 81 mg PO BID tab 06/18/19 02/08/21 History release pen needle, diabetic 31 gauge x #500 ea 01/29/20 02/08/21 Rx 1/3 omeprazole 20 mg capsule,delayed 20 mg PO DAILY #90 tab-cap 03/29/20 02/08/21 Rx release sildenafil 100 mg tablet 50 mg PO ONCE PRN #15 tab-cap 07/01/20 02/08/21 Rx losartan 100 mg tablet 100 mg PO DAILY #90 tab-cap 09/27/20 02/08/21 Rx atorvastatin 40 mg tablet 40 mg PO DAILY #90 tab-cap 12/09/20 02/08/21 Rx metformin 1,000 mg tablet 1,000 mg PO BID #180 tab-cap 12/09/20 02/08/21 Rx dulaglutide 3 mg/0.5 mL 3 mg SUBCUT QWEEK #6 ml 01/28/21 02/08/21 Rx subcutaneous pen injector flash glucose scanning reader #1 ea 01/28/21 02/08/21 Rx flash glucose sensor #6 ea 01/28/21 02/08/21 Rx hydrochlorothiazide 12.5 mg tablet 12.5 mg PO DAILY AM #90 tab-cap 01/28/21 02/08/21 Rx insulin lispro 100 unit/mL 35 unit SC QAC #12 syrg 01/28/21 02/08/21 Rx subcutaneous pen insulin degludec 200 unit/mL (3 60 unit SUBCUT BID #6 syrg 01/31/21 02/08/21 Rx mL) subcutaneous pen Results Labs Result diagrams: 02/08/21 09:40 02/08/21 09:40
--- NOTE | 2021-02-08 14:00 | DI.RAD_ITS ---
Exam(s) XR ELBOW RT LIMITED EXAM: XR ELBOW RT LIMITED CLINICAL HISTORY: OPEN FRACTURE RIGHT OLECRANON. TECHNIQUE: 2D digital imaging was performed. COMPARISON: No exams were available for comparison FINDINGS: Fluoroscopy provided during open reduction internal fixation of elbow fracture. See procedure report for details. Total fluoroscopy time 29 seconds Cumulative dose 0.8mGy IMPRESSION: DATA REPOSITORY: RADIATION DOSE DELIVERED:
[2021-02-08] MEDS: HYDROmorphone 2 MG/ML VIAL 0.5 MG IVP (14:02)
[2021-02-08] MEDS: ceFAZolin 2 GM/50 ML BAG IVPB (14:43)
[2021-02-08] MEDS: Bupivacaine 0.5% Pres-Free 30 ML VIAL (15:46)
--- NOTE | 2021-02-08 16:41 | W.ANESPOSTOP ---
Postoperative Evaluation Date, Time and Location Date Performed: 02/08/21 Time Performed: 16:41 Patient Location: PACU Vital Signs Most Recent Imported Vital Signs: Most Recent Vital Signs Temp Pulse Resp BP Pulse Ox 37.1 C 103 H 21 103/67 97 02/08/21 16:38 02/08/21 16:38 02/08/21 16:38 02/08/21 16:38 02/08/21 16:38 Pain Score Most Recent Pain Score: Most Recent Pain Score Pain Level [Right Elbow] 8 02/08/21 11:21 Pain Level 4 02/08/21 16:38 Assessment Mental Status: Awake (Alert & Oriented to Patient Baseline) Airway and Respiratory Function: Patent airway with normal (patient baseline) respiratory exam Cardiovascular Function: Hemodynamically Stable Hydration Status: Adequately Hydrated Nausea & Vomiting: No Nausea or Vomiting Pain: Pain is tolerable per patient Peripheral Nerve Block: Patient did not receive a nerve block
--- NOTE | 2021-02-08 16:55 | W.PM.DSUDISC ---
Discharge Plan Disposition Patient Disposition: HOME Condition: Stable Discharge Details Reason For Visit: Right Elbow Fracture Attending Provider: Suraj Sewell Primary Care Provider: Rebekah Leavitt Home Meds and New Rx's Prescriptions: New hydrocodone-acetaminophen 5-325 mg tablet 1 tab PO Q4H PRN (Reason: pain) Qty: 10 RF: 0 acetaminophen 500 mg tablet 500 mg PO Q6H PRN PRN (Reason: pain) Qty: 60 RF: 3 ibuprofen 600 mg tablet 600 mg PO TID PRN (Reason: pain) Qty: 90 RF: 3 cephalexin 500 mg capsule 500 mg PO QID Qty: 8 RF: 0 Continued Trulicity 3 mg/0.5 mL pen injector 3 mg subcut QWEEK Qty: 6 RF: 0 (DME) FreeStyle Shobha 2 Sensor Kit See Rx Instructions .ROUTE .MEDSUPPLY Qty: 6 RF: 3 (DME) FreeStyle Shobha 2 [place] Misc See Rx Instructions .ROUTE .MEDSUPPLY Qty: 1 RF: 0 insulin lispro [Humalog KwikPen Insulin] 100 unit/mL insulin pen 35 unit SC QAC Qty: 12 RF: 11 hydrochlorothiazide 12.5 mg tablet 12.5 mg PO DAILY AM Qty: 90 RF: 3 sildenafil [Viagra] 100 mg tablet 50 mg PO ONCE PRN (Reason: sexual activity) Qty: 15 RF: 0 atorvastatin [Lipitor] 40 mg tablet 40 mg PO DAILY Qty: 90 RF: 3 metformin 1,000 mg tablet 1,000 mg PO BID Qty: 180 RF: 3 aspirin [Aspir-81] 81 mg tablet,delayed release (DR/EC) 81 mg PO BID RF: 0 (DME) pen needle, diabetic 31 gauge x 1/3 needle 1 ea Miscellaneous HS Qty: 500 RF: 3 omeprazole 20 mg capsule,delayed release(DR/EC) 20 mg PO DAILY Qty: 90 RF: 3 losartan 100 mg tablet 100 mg PO DAILY Qty: 90 RF: 3 Tresiba FlexTouch U-200 200 unit/mL (3 mL) insulin pen 60 unit subcut BID Qty: 6 RF: 11 Discontinued acetaminophen 500 mg capsule 1,000 mg PO Q8H PRNRF: 0 Discharge Instructions Additional Instructions: Elbow Discharge Instructions Activity: You should stay in the sling for the first 2 weeks. You may come out of the sling for gentle motion and hygiene but should largely remain in the sling to allow the incision site and fracture to heal. You should use the sling for comfort especially when mobilizing. You may apply ice. Medications: - You should take Tylenol and Ibuprofen around the clock. - You have been prescribed Hydrocodone for breakthrough pain. - You will take Cephalexin 500mg four times a day starting tonight for 8 doses Dressings: - The initial surgical dressing should stay in place until your follow-up. If it starts to unravel or becomes soiled, you may call the office but just keep it covered with light gauze wrap. - Avoid getting the dressing wet Follow-up: 10 days Referrals: Suraj Sewell MD [ [facility] STAFF PHYSICIAN] - Equipment/Supplies: Sling Activity:: In Sling Remove Dressings/Wound Care:: Do Not Remove Shower/Bathe:: Cover Diet:: As Tolerated Discharge Orders Discharge Orders: Discharge Order (Routine); Ordered 02/08/21 Ordered By: Suraj Sewell DS: Diagnosis Discharge Diagnosis (1) Open fracture of olecranon process of right ulna with intraarticular extension: Status: Acute
--- NOTE | 2021-02-09 06:31 | W.PM.OP ---
Date of service: 02/08/21 Time of Service: 16:02 Operative Note Operative Note DATE OF PROCEDURE: 02/08/21 PRE-OP DIAGNOSIS: Grade 1 open right olecranon fracture POST-OP DIAGNOSIS: same PROCEDURE: Irrigation debridement of right open olecranon fracture, operative fixation of right olecranon fracture with intramedullary screw SURGEON: Suraj Sewell W[employer] SYSTEMS ENGINEER: Ja López ANESTHESIA TYPE: General LMA/ETT Refer to Anesthesia Record ESTIMATED BLOOD LOSS: 10 TOURNIQUET TIME: 0 COMPLICATIONS: None Patient was transported to: PACU Patient's condition: stable Implants: Synthes 7.3 x 130 mm cannulated screw with washer Indications: Cm is a 51-year-old who slipped today at work landing on his right elbow against a concrete floor. He had immediate pain. He also had some bleeding in the area. He thus presented to the emergency department at [facility] where he was diagnosed with an open olecranon fracture. He received antibiotics in the emergency department. The wound was dressed. I was consulted I recommended we proceed with open irrigation debridement and fracture fixation. I discussed the technical details of the surgery. I reviewed the risk of the procedure to include bleeding, infection pain, stiffness, hardware prominence, hardware failure, malunion, nonunion, need for procedures, damage to nerves and vessels. Despite these risk, he elects to proceed. Findings: There is a 5 mm laceration over the posterior aspect of the proximal forearm which to communicate with the fracture. This whole area was opened and thoroughly debrided and irrigated with 3 L normal saline. There is no gross contamination and no signs of necrotic or infected tissue. The fracture was irregular but not comminuted and therefore I was able to anatomically reduce and secured with a single 7.3 mm intramedullary cannulated screw Procedure Description: Cm was greeted the preoperative holding area. His identity was confirmed the correct size identified and marked. The consent was read the patient is signed. History and physical was performed during the emergency consult. Thank the operating room placed in supine position. All bony prominences well-padded. A general anesthetic was administered. The right arm was prepped ChloraPrep and draped in a standard fashion and kept across his chest using bumps. A timeout was performed for safe surgery. An incision was then made over the olecranon curving around the lateral aspect of the olecranon and over to the laceration of the proximal forearm. This is taken out through skin sharply and the deeper tissue. There is notable communication between the small, 5 mm, laceration and the fracture site. There was blood engorged tissue in this area. This was dissected sharply down the level of the olecranon. There is already significant amount of hematoma in the area which was sharply debrided. The bony edges were exposed using a sewell elevator and electrocautery. Sharp debridement was performed with an elevator. I then irrigated the wound with 3 L normal saline. There is no gross contamination. The fracture was distracted and the joint was inspected. There is no notable damage to the distal humeral cartilage surface. I then reduced the fracture by slightly extending the arm and manual manipulating the proximal fragment. This was able to be reduced anatomically and held with a clamp. I then placed a single K wire on the lateral side also help with holding. An x-ray was used to confirm reduction. I was able to palpate the fracture through the articular surface and there was no notable step-off. I then placed the guidewire from the 7.3 mm cannulated screw system into the olecranon. This was advanced into the ulna and guided by intraoperative fluoroscopy. This wire was advanced all the way until there was some resistance into the isthmus and diaphysis of the ulna. Once this was in place I then made a small split incision into the triceps and prepared the screw path with the appropriate cannulated drill. This was taken until there is some notable resistance. I then used the tap to tap the screw path. The K wire and clamp were utilized to prevent rotation of the fracture fragment loss of reduction. The tap was advanced until there is excellent resistance in the taken a few turns more. A tap was backed out 1 or 2 turns marked for measuring later and then fully removed from the ulna. This measured to 130 mm screw. The [id number] screw was then selected with a washer. It was inserted over the guidewire. As it was advanced the washer was placed underneath the triceps. There was excellent purchase with the screw with notable compression at the fracture site. There is no further comminution. There is no fracture reduction loss. Final x-rays were obtained which showed near anatomic reduction of the fracture site with compression of the fracture site and a well-placed centralized intramedullary screw. The wounds once again irrigated. Deep tissues were injected with 0.25% bupivacaine. Deep layer was closed with 0 Vicryl. Deep dermal layer was closed with 2-0 Vicryl. Skin was closed with a 3-0 nylon. At the end the case all counts were correct. The wound was dressed with Xeroform, 4 x 4's, ABD, Kerlix, and Nikko wrap. He is placed into a shoulder immobilizer. He was transferred to the PACU in stable condition suffering no notable complications. He did receive antibiotics in the emergency department and prior to the case. He will receive oral antibiotics for the next 48 hours.
== END 2021-02-08 17:40 | disposition home or self-care (01) ==
LOC: ER 10:56 → SUR 12:10
PROVIDERS: Emergency Provider Physician Assistant; PCP Nurse Practitioner Family; Visit Provider Student in an Organized Health Care Education/Training Program
PROC: 0PSK04Z Reposition Right Ulna with Internal Fixation Device, Open Approach (ICD-10-PCS; CPT 24685; principal; 2021-02-08 15:45)
DX: S52.031B Displaced fracture of olecranon process with intraarticular extension of right ulna, initial encounter for open fracture type I or II (principal); W17.89XA Other fall from one level to another, initial encounter; Y99.0 Civilian activity done for income or pay; E11.9 Type 2 diabetes mellitus without complications; Z79.4 Long term (current) use of insulin; I10 Essential (primary) hypertension; E78.5 Hyperlipidemia, unspecified
CPT/HCPCS: 24685; 11012; 36415; 80053; 87635; 96365; 99285; 73070; 73080; 85025; 85610; 85730; J0131; J0690; J1100; J2001; J2250; J2405

== ENCOUNTER 2021-02-17 11:35 | Outpatient (CLI) | payer OTHER, SELFPAY ==
--- NOTE | 2021-02-17 11:15 | DI.RAD_ITS ---
Exam(s) XR ELBOW RT LIMITED EXAM: XR ELBOW RT LIMITED INDICATION: f/u I D and ORIF of R Olecranon Frx. COMPARISON: CR XR ELBOW RT COMPLETE from 02/08/2021 XR ELBOW RT LIMITED from 02/08/2021 TECHNIQUE: 2D digital imaging was performed. FINDINGS: There has been no change in fracture or hardware alignment. DATA REPOSITORY: RADIATION DOSE DELIVERED:
--- NOTE | 2021-02-17 11:45 | DI.RAD_ITS ---
Exam(s) XR WRIST RT COMPLETE EXAM: XR WRIST RT COMPLETE CLINICAL HISTORY: eval R wrist pain after fall. TECHNIQUE: 2D digital imaging was performed. COMPARISON: No exams were available for comparison FINDINGS: BONES: No acute fracture is present. No bony destructive lesion is seen. JOINTS: The carpal bones are normally aligned. SOFT TISSUE: Normal. IMPRESSION: Unremarkable radiographs of the right wrist. DATA REPOSITORY: RADIATION DOSE DELIVERED:
== END 2021-02-17 11:36 | disposition home or self-care (01) ==
PROVIDERS: PCP Nurse Practitioner Family; Referring Provider Nurse Practitioner Family; Visit Provider Student in an Organized Health Care Education/Training Program
DX: M25.531 Pain in right wrist (principal); S52.03 Fracture of olecranon process with intraarticular extension of ulna; W10.8XXD Fall (on) (from) other stairs and steps, subsequent encounter
CPT/HCPCS: 73070; 73110

== ENCOUNTER 2021-02-21 14:56 | Outpatient (CLI) | payer OTHER, SELFPAY ==
--- NOTE | 2021-02-21 13:31 | DI.RAD_ITS ---
Exam(s) XR ELBOW RT LIMITED EXAM: XR ELBOW RT LIMITED CLINICAL HISTORY: RIGHT ELBOW INJURY. TECHNIQUE: 2D digital imaging was performed. COMPARISON: CR XR ELBOW RT LIMITED from 02/17/2021 FINDINGS: Again noted is a lung truly orientated screw across olecranon fracture site which remains stable in a ppearance. No hardware fracture. No radiographic evidence of osteomyelitis. No other fractures breanne ntified. Radial head appears unremarkable. Incidentally noted is a 5 x 5 millimeter calcific density adjacent to the lateral epicondyle, most pr obably related to the common extensor tendon. Correlation with any clinical symptomatology of latera l epicondylitis is recommended. IMPRESSION: DATA REPOSITORY: RADIATION DOSE DELIVERED:
== END 2021-02-21 14:57 | disposition home or self-care (01) ==
LOC: DIORS 14:56
PROVIDERS: PCP Nurse Practitioner Family; Referring Provider Nurse Practitioner Family; Visit Provider Physician Assistant
DX: S52.03 Fracture of olecranon process with intraarticular extension of ulna (principal); W17.89XD Other fall from one level to another, subsequent encounter
CPT/HCPCS: 73070

== ENCOUNTER 2021-03-21 08:49 | Outpatient (CLI) | payer OTHER, SELFPAY ==
--- NOTE | 2021-03-21 08:30 | DI.RAD_ITS ---
Exam(s) XR ELBOW RT LIMITED EXAM: XR ELBOW RT LIMITED CLINICAL HISTORY: f/u R elbow ORIF. TECHNIQUE: 2D digital imaging was performed. COMPARISON: CR XR ELBOW RT LIMITED from 02/21/2021 FINDINGS: Again noted is a screw across the election fracture site which remain stable appearance. Fracture li ne is still visible but not displaced. No hardware loosening evident. No radiographic evidence of o steomyelitis. On the lateral aspect of the elbow joint there is again noted 5 x 5 millimeter calcification adjacent to the lateral epicondyle. IMPRESSION: Olecranon fossa fracture lines are still evident. Hardware remains in satisfactory position. DATA REPOSITORY: RADIATION DOSE DELIVERED:
== END 2021-03-21 08:50 | disposition home or self-care (01) ==
LOC: DIORS 08:50
PROVIDERS: PCP Nurse Practitioner Family; Referring Provider Nurse Practitioner Family; Visit Provider Student in an Organized Health Care Education/Training Program
DX: S52.03 Fracture of olecranon process with intraarticular extension of ulna; W17.89XD Other fall from one level to another, subsequent encounter
CPT/HCPCS: 73070

== ENCOUNTER 2021-04-18 08:45 | Outpatient (CLI) | payer OTHER, SELFPAY ==
--- NOTE | 2021-04-18 08:30 | DI.RAD_ITS ---
Exam(s) XR ELBOW RT LIMITED EXAM: XR ELBOW RT LIMITED CLINICAL HISTORY: ORIF R elbow. TECHNIQUE: 2D digital imaging was performed. COMPARISON: Prior x-rays 03/21/2021 FINDINGS: Again noted is a lung truly orientated screw across the olecranon fracture site. The appearance of t he fracture site is unchanged. Fracture line still evident but without further widening. No evidenc e of osteomyelitis. Calcification again noted in the soft tissues immediately adjacent to the latera l epicondyle. IMPRESSION: DATA REPOSITORY: RADIATION DOSE DELIVERED:
--- NOTE | 2021-04-18 08:45 | DI.RAD_ITS ---
Exam(s) XR WRIST RT COMPLETE EXAM: XR WRIST RT COMPLETE CLINICAL HISTORY: R wrist pain. TECHNIQUE: 2D digital imaging was performed. COMPARISON: CR XR WRIST RT COMPLETE from 02/17/2021 FINDINGS: Three views are submitted for interpretation including AP, lateral, and scaphoid views. Compared to prior study 02/17/2021 Small nonexpansile bone cyst noted at the base of the ulnar styloid. No fractures. No significant u lnar variance. Scaphoid-navicular appears unremarkable as does the scapholunate distance. IMPRESSION: No significant radiographic findings nor significant change compared 02/17/2021 DATA REPOSITORY: RADIATION DOSE DELIVERED:
== END 2021-04-18 08:46 | disposition home or self-care (01) ==
PROVIDERS: PCP Nurse Practitioner Family; Referring Provider Nurse Practitioner Family; Visit Provider Physician Assistant
DX: M25.531 Pain in right wrist; S52.03 Fracture of olecranon process with intraarticular extension of ulna; X58.XXXD Exposure to other specified factors, subsequent encounter
CPT/HCPCS: 73070; 73110

== ENCOUNTER 2021-05-03 01:16 | Outpatient (CLI) | payer BC, SELFPAY ==
--- NOTE | 2021-05-03 06:45 | DI.MRI_ITS ---
Exam(s) MR UPPER JOINT RT WO EXAM: MR UPPER JOINT RT WO CLINICAL HISTORY: RIGHT WRIST INJURY/PAIN,[id number] TECHNIQUE: Multiplanar multisequence MRI of the shoulder was performed. COMPARISON: No exams were available for comparison FINDINGS: There is motion artifact degrading images of sequence MARROW:No evidence of fracture, bone contusions, nor avascular necrosis. Small degenerative cyst uln ar styloid base. ARTICULATIONS: There are mild degenerative changes. No erosions evident. No evidence of para-articu lar ganglion cysts. Scapholunate ligament: Thin/attenuated. Does not appear to be a full-thickness tear. Lunotriquetral ligament: Intact. Triangular fibrocartilage complex: No prominent tear. TENDONS: Flexor tendons appear unremarkable. Carpal tunnel contents unremarkable. Extensor compartment tendons: Mild tendinitis signal and tenosynovitis of the extensor or carpi ulnar is tendon. No evidence of the care veins tenosynovitis. IMPRESSION: 1. Mild extensor carpi ulnaris tendinitis/tenosynovitis. 2. Other mild findings as above. 3. No fractures nor bone contusions.. DATA REPOSITORY:
--- NOTE | 2021-05-03 14:32 | DI.VRAD_ITS ---
PROCEDURE INFORMATION: Exam: MR Right Upper Extremity Joint Without Contrast; Wrist Exam date and time: 05/03/2021 8:33 AM Age: 51 years old Clinical indication: Pain; Wrist; Right TECHNIQUE: Imaging protocol: MR of the Right upper extremity without contrast. Exam focused on the wrist. COMPARISON: CR XR WRIST RT COMPLETE 04/18/2021 9:08 AM FINDINGS: Bones and cartilage: There is mild productive change along the ulnar styloid with a small cystic focus here likely degenerative. The bone marrow is otherwise normal in signal. The cortices are preserved. Joint spaces: The joint spaces are normally aligned. Very small effusion involves the distal radioulnar joint. The radiocarpal compartment demonstrates mild chondromalacia. Very mild osteophyte formation is present between multiple carpal bones and about the 1st carpometacarpal joint. Scapholunate ligament: Unremarkable. No tear. Lunotriquetral ligament: Unremarkable. No tear. Triangular fibrocartilage complex: Unremarkable. No tear. Flexor compartment tendons: Unremarkable. No tear. Extensor compartment tendons: The extensor carpi ulnaris tendon is mildly thickened and very mildly increased in signal with very small fluid in its sheath, indicating tendinopathy with tenosynovitis. The other extensor tendons appear unremarkable. Muscles: Unremarkable. No acute abnormality. Soft tissues: Unremarkable. IMPRESSION: 1. Degenerative changes as described. 2. Mild extensor carpi ulnaris tendinopathy and tenosynovitis. 3. Very small nonspecific effusion of the distal radioulnar joint. Dictated and Authenticated by: Ministerio Le MD. Ordering:OMARI Ruelas MD
== END 2021-05-03 01:36 ==
PROVIDERS: PCP Nurse Practitioner Family; Visit Provider Student in an Organized Health Care Education/Training Program
DX: S69.81XA Other specified injuries of right wrist, hand and finger(s), initial encounter (principal); M77.8 Other enthesopathies, not elsewhere classified; M25.531 Pain in right wrist; M25.831 Other specified joint disorders, right wrist; S63.591A Other specified sprain of right wrist, initial encounter; X58.XXXA Exposure to other specified factors, initial encounter
CPT/HCPCS: 73221

== ENCOUNTER 2021-06-06 12:08 | Outpatient (REF) | payer BC, SELFPAY ==
[2021-06-06 12:54] LABS: Abs Immature Grans 0.02 10^3/uL (0.0-0.06); Absolute Basophil Count 0.06 10^3/uL (0.0-0.2); Absolute Lymphocyte Count 1.87 10^3/uL (1.2-3.4); Absolute Monocyte Count 0.62 10^3/uL (0.1-0.8); Basophils % 0.8; ESR 43 mm/hr (0-20); Eosinophils % 2.7; HCT 27.3 % (40.0-50.0); HGB 8.6 g/dL (13.5-17.5); Immature Grans % 0.3; MCH 28.8 pg (27.0-33.0); MCHC 31.5 % (32.0-36.0); MCV 91.3 fL (80-95); MPV 8.5 fL (8.0-11.0); Monocytes % 8.3; Neutrophils % 62.9; Nucleated RBC 0 %; Platelet Count 461 10^3/uL (130-400); RBC 2.99 10^6/uL (4.36-5.78); RDW 13.2 % (11.8-14.1); RDW-SD 42.9 fL; WBC 7.47 10^3/uL (4.4-10.8)
[2021-06-06 13:21] LABS: ALT 18 U/L (16-63); AST 15 U/L (15-37); Alkaline Phosphatase 121 U/L (46-116); Anion Gap 7.8 mmol/L (3-11); BUN 30 mg/dL (7-18); Bilirubin, Total 0.2 mg/dL (0.2-1.0); CO2 28.2 mmol/L (21.0-32.0); CREATININE 1.4 mg/dL (0.70-1.30); Calcium 8.7 mg/dL (8.5-10.1); Chloride 104 mmol/L (98-107); Estimated GFR 53.01 (mL/min/1.73m2); Glucose 258 mg/dL (74-106); Potassium 4.8 mmol/L (3.5-5.1); Sodium 140 mmol/L (136-145); Total Protein 7.5 g/dL (6.4-8.2)
== END 2021-06-06 12:09 | disposition home or self-care (01) ==
LOC: LBN 12:08
PROVIDERS: PCP Nurse Practitioner Family; Visit Provider Internal Medicine Infectious Disease
DX: B95.7 Other staphylococcus as the cause of diseases classified elsewhere (principal); Z79.2 Long term (current) use of antibiotics
CPT/HCPCS: 80053; 85652; 85025

== ENCOUNTER 2021-06-12 16:11 | Outpatient (REF) | payer BC, SELFPAY ==
[2021-06-12 17:07] LABS: Abs Immature Grans 0.02 10^3/uL (0.0-0.06); Absolute Basophil Count 0.06 10^3/uL (0.0-0.2); Absolute Lymphocyte Count 1.86 10^3/uL (1.2-3.4); Absolute Monocyte Count 0.49 10^3/uL (0.1-0.8); Basophils % 0.8; Eosinophils % 2.8; HCT 28.7 % (40.0-50.0); Immature Grans % 0.3; Lymphocytes % 26.1; MCH 28.5 pg (27.0-33.0); MCHC 31.4 % (32.0-36.0); MCV 90.8 fL (80-95); MPV 8.9 fL (8.0-11.0); Monocytes % 6.9; Neutrophils % 63.1; Platelet Count 396 10^3/uL (130-400); RBC 3.16 10^6/uL (4.36-5.78); RDW 13.2 % (11.8-14.1); RDW-SD 43.2 fL; WBC 7.13 10^3/uL (4.4-10.8)
[2021-06-12 17:15] LABS: ALT 20 U/L (16-63); AST 15 U/L (15-37); Albumin 3.2 g/dL (3.4-5.0); Alkaline Phosphatase 105 U/L (46-116); Anion Gap 8.3 mmol/L (3-11); BUN 27 mg/dL (7-18); Bilirubin, Total 0.3 mg/dL (0.2-1.0); CO2 27.7 mmol/L (21.0-32.0); CREATININE 1.4 mg/dL (0.70-1.30); Calcium 8.7 mg/dL (8.5-10.1); Chloride 102 mmol/L (98-107); ESR 33 mm/hr (0-20); Estimated GFR 53.01 (mL/min/1.73m2); Glucose 202 mg/dL (74-106); Potassium 4.2 mmol/L (3.5-5.1); Sodium 138 mmol/L (136-145); Total Protein 7.2 g/dL (6.4-8.2)
[2021-06-13 13:36] LABS: C-Reactive Protein 0.12 mg/dL (0.0-0.3)
== END 2021-06-12 16:12 | disposition home or self-care (01) ==
LOC: LBN 16:11
PROVIDERS: PCP Nurse Practitioner Family; Visit Provider Internal Medicine Infectious Disease
DX: T84.7XXD Infection and inflammatory reaction due to other internal orthopedic prosthetic devices, implants and grafts, subsequent encounter (principal); B95.61 Methicillin susceptible Staphylococcus aureus infection as the cause of diseases classified elsewhere; Z79.2 Long term (current) use of antibiotics
CPT/HCPCS: 80053; 85652; 85025; 86140

== ENCOUNTER 2021-06-20 14:09 | Outpatient (REF) | payer BC, SELFPAY ==
[2021-06-20 14:45] LABS: Abs Immature Grans 0.02 10^3/uL (0.0-0.06); Absolute Basophil Count 0.09 10^3/uL (0.0-0.2); Absolute Monocyte Count 0.56 10^3/uL (0.1-0.8); Absolute Neutrophil Count 5.45 10^3/uL (1.2-6.7); Basophils % 1.1; Eosinophils % 2.4; HCT 30.7 % (40.0-50.0); HGB 9.6 g/dL (13.5-17.5); Immature Grans % 0.2; Lymphocytes % 23.1; MCH 28.6 pg (27.0-33.0); MCHC 31.3 % (32.0-36.0); MCV 91.4 fL (80-95); MPV 9.2 fL (8.0-11.0); Monocytes % 6.8; Neutrophils % 66.4; Platelet Count 365 10^3/uL (130-400); RBC 3.36 10^6/uL (4.36-5.78); RDW 13.3 % (11.8-14.1); RDW-SD 44.5 fL; WBC 8.22 10^3/uL (4.4-10.8)
[2021-06-20 14:48] LABS: ESR 37 mm/hr (0-20)
[2021-06-20 15:11] LABS: ALT 14 U/L (16-63); AST 15 U/L (15-37); Albumin 3.5 g/dL (3.4-5.0); Alkaline Phosphatase 97 U/L (46-116); Anion Gap 8.5 mmol/L (3-11); BUN 34 mg/dL (7-18); Bilirubin, Total 0.3 mg/dL (0.2-1.0); CO2 26.5 mmol/L (21.0-32.0); CREATININE 1.4 mg/dL (0.70-1.30); Calcium 8.7 mg/dL (8.5-10.1); Chloride 104 mmol/L (98-107); Estimated GFR 53.01 (mL/min/1.73m2); Glucose 199 mg/dL (74-106); Potassium 4.8 mmol/L (3.5-5.1); Sodium 139 mmol/L (136-145); Total Protein 7.4 g/dL (6.4-8.2)
[2021-06-22 10:55] LABS: C-Reactive Protein 0.18 mg/dL (0.0-0.3)
== END 2021-06-20 14:10 | disposition home or self-care (01) ==
LOC: LBN 14:09
PROVIDERS: PCP Nurse Practitioner Family; Visit Provider Internal Medicine Infectious Disease
DX: E11.69 Type 2 diabetes mellitus with other specified complication (principal); Z79.2 Long term (current) use of antibiotics; B95.61 Methicillin susceptible Staphylococcus aureus infection as the cause of diseases classified elsewhere
CPT/HCPCS: 80053; 85652; 85025; 86140

== ENCOUNTER 2021-06-26 11:48 | Outpatient (REF) | payer BC, SELFPAY ==
[2021-06-26 12:59] LABS: ALT 21 U/L (16-63); AST 19 U/L (15-37); Albumin 3.6 g/dL (3.4-5.0); Alkaline Phosphatase 94 U/L (46-116); Anion Gap 7.6 mmol/L (3-11); BUN 34 mg/dL (7-18); Bilirubin, Total 0.2 mg/dL (0.2-1.0); C-Reactive Protein 0.18 mg/dL (0.0-0.3); CO2 27.4 mmol/L (21.0-32.0); CREATININE 1.6 mg/dL (0.70-1.30); Chloride 104 mmol/L (98-107); Estimated GFR 45.44 (mL/min/1.73m2); Glucose 163 mg/dL (74-106); Potassium 5.1 mmol/L (3.5-5.1); Sodium 139 mmol/L (136-145); Total Protein 7.5 g/dL (6.4-8.2)
== END 2021-06-26 11:49 | disposition home or self-care (01) ==
LOC: LBN 11:48
PROVIDERS: PCP Nurse Practitioner Family; Visit Provider Internal Medicine Infectious Disease
DX: T84.7XXD Infection and inflammatory reaction due to other internal orthopedic prosthetic devices, implants and grafts, subsequent encounter (principal); B95.61 Methicillin susceptible Staphylococcus aureus infection as the cause of diseases classified elsewhere; Z79.2 Long term (current) use of antibiotics
CPT/HCPCS: 80053; 86140

== ENCOUNTER 2021-06-30 20:34 | Outpatient (REF) | payer BC, SELFPAY ==
[2021-06-30 14:11] LABS: Abs Immature Grans 0.02 10^3/uL (0.0-0.06); Absolute Basophil Count 0.05 10^3/uL (0.0-0.2); Absolute Eosinophil Count 0.16 10^3/uL (0.0-0.7); Absolute Lymphocyte Count 1.84 10^3/uL (1.2-3.4); Absolute Monocyte Count 0.48 10^3/uL (0.1-0.8); Absolute Neutrophil Count 4.24 10^3/uL (1.2-6.7); Basophils % 0.7; Eosinophils % 2.4; HCT 30.5 % (40.0-50.0); HGB 9.8 g/dL (13.5-17.5); Immature Grans % 0.3; Lymphocytes % 27.1; MCHC 32.1 % (32.0-36.0); MCV 90 fL (80-95); MPV 9.1 fL (8.0-11.0); Monocytes % 7.1; Neutrophils % 62.4; Platelet Count 352 10^3/uL (130-400); RBC 3.38 10^6/uL (4.36-5.78); RDW-SD 42.6 fL; WBC 6.79 10^3/uL (4.4-10.8)
== END 2021-06-30 20:35 | disposition home or self-care (01) ==
LOC: LBN 20:34
PROVIDERS: PCP Nurse Practitioner Family; Visit Provider Internal Medicine Infectious Disease
DX: T84.7XXD Infection and inflammatory reaction due to other internal orthopedic prosthetic devices, implants and grafts, subsequent encounter (principal); Z79.2 Long term (current) use of antibiotics; B95.61 Methicillin susceptible Staphylococcus aureus infection as the cause of diseases classified elsewhere
CPT/HCPCS: 85025

== ENCOUNTER 2021-07-04 13:30 | Outpatient (REF) | payer BC, SELFPAY ==
[2021-07-04 13:56] LABS: Abs Immature Grans 0.02 10^3/uL (0.0-0.06); Absolute Basophil Count 0.06 10^3/uL (0.0-0.2); Absolute Eosinophil Count 0.23 10^3/uL (0.0-0.7); Absolute Monocyte Count 0.63 10^3/uL (0.1-0.8); Absolute Neutrophil Count 4.54 10^3/uL (1.2-6.7); Basophils % 0.8; Eosinophils % 3.1; HCT 30.8 % (40.0-50.0); HGB 9.6 g/dL (13.5-17.5); Immature Grans % 0.3; Lymphocytes % 26.7; MCH 28.3 pg (27.0-33.0); MCHC 31.2 % (32.0-36.0); MCV 91 fL (80-95); MPV 8.9 fL (8.0-11.0); Monocytes % 8.4; Neutrophils % 60.7; Platelet Count 365 10^3/uL (130-400); RBC 3.39 10^6/uL (4.36-5.78); RDW-SD 42.9 fL; WBC 7.48 10^3/uL (4.4-10.8)
[2021-07-04 14:17] LABS: ALT 25 U/L (16-63); AST 17 U/L (15-37); Albumin 3.5 g/dL (3.4-5.0); Alkaline Phosphatase 92 U/L (46-116); BUN 26 mg/dL (7-18); Bilirubin, Total 0.3 mg/dL (0.2-1.0); CREATININE 1.5 mg/dL (0.70-1.30); Calcium 8.6 mg/dL (8.5-10.1); Chloride 103 mmol/L (98-107); Estimated GFR 48.95 (mL/min/1.73m2); Glucose 219 mg/dL (74-106); Potassium 4.9 mmol/L (3.5-5.1); Sodium 137 mmol/L (136-145); Total Protein 7.1 g/dL (6.4-8.2)
== END 2021-07-04 13:31 | disposition home or self-care (01) ==
LOC: LBN 13:30
PROVIDERS: PCP Nurse Practitioner Family; Visit Provider Internal Medicine Infectious Disease
DX: T84.7XXD Infection and inflammatory reaction due to other internal orthopedic prosthetic devices, implants and grafts, subsequent encounter (principal); Z79.2 Long term (current) use of antibiotics; B95.61 Methicillin susceptible Staphylococcus aureus infection as the cause of diseases classified elsewhere
CPT/HCPCS: 80053; 85025; 86140

== ENCOUNTER 2021-09-12 01:55 | Outpatient (CLI) | payer BC, SELFPAY ==
[2021-09-12 08:47] LABS: Anion Gap 8.5 mmol/L (3-11); BUN 30 mg/dL (7-18); CO2 28.5 mmol/L (21.0-32.0); CREATININE 1.4 mg/dL (0.70-1.30); Calcium 9.1 mg/dL (8.5-10.1); Chloride 104 mmol/L (98-107); Estimated GFR 53.01 (mL/min/1.73m2); Glucose 93 mg/dL (74-106); Potassium 4.4 mmol/L (3.5-5.1); Sodium 141 mmol/L (136-145)
== END 2021-09-12 01:56 | disposition home or self-care (01) ==
LOC: LBO 01:55
PROVIDERS: Absent Provider Nurse Practitioner Adult Health; PCP Nurse Practitioner Family; Visit Provider Nurse Practitioner Adult Health
DX: E11.29 Type 2 diabetes mellitus with other diabetic kidney complication (principal); R80.9 Proteinuria, unspecified; Z79.4 Long term (current) use of insulin; Z51.81 Encounter for therapeutic drug level monitoring
CPT/HCPCS: 36415; 80048